=== PATIENT | female | born 1945 | race Two or more races ===

== ENCOUNTER 2016-10-15 10:47 | Day surgery (SDC) | payer OTHER ==
[~2016-10-15 10:47] MED LIST: Acetaminophen TAB* 325 MG PO PRN; Buffered Lidocaine 0.9% SYRIN* 5 ML/SYR SYRINGE INTRADERM ONE
[2016-10-15] MEDS ORDERED: fentaNYL* 50 MCG/ML 2 ML VIAL (100 MCG VIAL) ONE (11:46)
[2016-10-15] MEDS ORDERED: Midazolam* 1 MG/ML 2 ML VIAL (2 MG) ONE ×2 (11:46→13:27)
[2016-10-15 12:35] VITALS: BP 111/73
[2016-10-15] MEDS ORDERED: Flurbiprofen 0.03% OPTH.SOL* 2.5 ML BTL ONE (14:20)
[2016-10-15] MEDS ORDERED: Neomycin/Polymy/Dex OPHTH.OIN* 3.5 GM ONE (14:20)
[2016-10-15] MEDS ORDERED: Lidocaine 1% MPF* 2 ML VIAL ONE (14:20)
[2016-10-15] MEDS ORDERED: Phenylephrine 2.5% OPTH.SOL* 2 ML BTL ONE (14:20)
[2016-10-15] MEDS ORDERED: Buffered Lidocaine 0.9% SYRIN* 5 ML/SYR SYRINGE ONE (14:20)
[2016-10-15] MEDS ORDERED: Tropicamide 1% OPTH.SOL* BTL ONE (14:20)
[2016-10-15] MEDS ORDERED: Tetracaine 0.5% OPTH.SOL 4 ML* 1 DROP BTL ONE (14:20)
[2016-10-15] MEDS ORDERED: Cyclopentolate 1% OPTH.SOL* 2 ML BTL ONE (14:20)
--- NOTE | 2016-10-15 14:52 | OP ---
DATE OF OPERATION/DATE OF DICTATION: 10/15/2016 - [facility] DATE OF : 1945. SURGEON: Dr. Getachew Sage. METAL MACHINIST: None. ANESTHESIA: Topical with intravenous sedation. PRE-OP DIAGNOSIS: Cataract, right eye. POST-OP DIAGNOSIS: Cataract, right eye. OPERATIVE PROCEDURE: Phacoemulsification and cataract extraction with posterior chamber intraocular lens implant, right eye. COMPLICATIONS: None. BLOOD LOSS: None. DESCRIPTION OF PROCEDURE: The patient was brought to the operating room and received a small amount of intra-venous sedation. A drop of Tetracaine was placed in her right eye. She was prepped and draped in the usual sterile fashion for ophthalmic surgery and attention was directed to the right eye where a speculum was placed. A paracentesis was created at the 11 o'clock position and 0.1 cc of 1 percent preservative-free Lidocaine was injected into the anterior chamber followed by DisCoVisc. The eye was digitally stabilized while a 2.75 mm keratome was used to create a triplanar clear corneal incision at the 9 o'clock position. A continuous curvilinear capsulorrhexis was created with a cystotome and Utrata forceps. BSS on a cannula was used to hydrodissect the lens from the capsule. Phacoemulsification was performed in a divide-and- conquer technique to create four fragments which were removed. Residual cortical material was removed with irrigation and aspiration. DisCoVisc was used to inflate the capsular bag and an AUOOTO 15.0 diopter lens was folded and inserted into the capsular bag. DisCoVisc was removed using irrigation and aspiration. BSS on a cannula was used to hydrate the corneal stroma and seal the wound. At the end of the case the pupil was round and the lens was centered. The eye was of normal pressure and the wound was water tight. The speculum was removed and topical Maxitrol ointment was placed on the surface of the eye. The eye was closed, patched and shielded and the patient was sent to the recovery room in stable condition with post operative instructions and follow-up appointment given. [id number]/CPS #: [id number] MTDD
== END 2016-10-15 12:46 | disposition home or self-care (01) ==
LOC: OREAST 10:47
PROVIDERS: ATTEND Ophthalmology
DX: H25.11 Age-related nuclear cataract, right eye (principal); E78.5 Hyperlipidemia, unspecified
CPT/HCPCS: A9270-GY; J2250; J3010

== ENCOUNTER 2016-10-22 07:02 | Day surgery (SDC) | payer OTHER ==
[2016-10-22] MEDS ORDERED: fentaNYL* 50 MCG/ML 2 ML VIAL (100 MCG VIAL) ONE (08:12)
[2016-10-22] MEDS ORDERED: Midazolam* 1 MG/ML 5 ML VIAL (5 MG) ONE (08:12)
[2016-10-22 09:06] VITALS: BP 110/63
--- NOTE | 2016-10-22 09:26 | OP ---
DATE OF OPERATION/DATE OF DICTATION: 10/22/2016 - [facility] DATE OF : 1945. SURGEON: Dr. Getachew Sage. BAND TIER: None. ANESTHESIOLOGIST: Keshawn Jin MD ANESTHESIA: Topical with intravenous sedation. PRE-OP DIAGNOSIS: Cataract, left eye. POST-OP DIAGNOSIS: Cataract, left eye. OPERATIVE PROCEDURE: Phacoemulsification and cataract extraction with posterior chamber intraocular lens implant, left eye. COMPLICATIONS: None. BLOOD LOSS: None. DESCRIPTION OF PROCEDURE: The patient was brought to the operating room and received a small amount of intravenous sedation. A drop of Tetracaine was placed in her left eye. She was prepped and draped in the usual sterile fashion for ophthalmic surgery and attention was directed to the left eye where a speculum was placed. A paracentesis was created at the 5 o'clock position and 0.1 cc of 1 percent preservative-free Lidocaine was injected into the anterior chamber followed by DisCoVisc. The eye was digitally stabilized while a 2.75 mm keratome was used to create a triplanar clear corneal incision at the 3 o'clock position. A continuous curvilinear capsulorrhexis was created with a cystotome and Utrata forceps. BSS on a cannula was used to hydrodissect the lens from the capsule. Phacoemulsification was performed in a divide-and- conquer technique to create four fragments which were removed. Residual cortical material was removed with irrigation and aspiration. DisCoVisc was used to inflate the capsular bag and an AUOOTO 18.0 diopter lens was folded and inserted into the capsular bag. DisCoVisc was removed using irrigation and aspiration. BSS on a cannula was used to hydrate the corneal stroma and seal the wound. At the end of the case the pupil was round and the lens was centered. The eye was of normal pressure and the wound was water tight. The speculum was removed and topical Maxitrol ointment was placed on the surface of the eye. The eye was closed, patched and shielded and the patient was sent to the recovery room in stable condition with post operative instructions and follow-up appointment given. [id number]/CPS #: [id number] MTDD
[2016-10-22] MEDS ORDERED: Flurbiprofen 0.03% OPTH.SOL* 2.5 ML BTL ONE (12:54)
[2016-10-22] MEDS ORDERED: Cyclopentolate 1% OPTH.SOL* 2 ML BTL ONE (12:54)
[2016-10-22] MEDS ORDERED: Tropicamide 1% OPTH.SOL* BTL ONE (13:41)
[2016-10-22] MEDS ORDERED: Neomycin/Polymy/Dex OPHTH.OIN* 3.5 GM ONE (13:41)
[2016-10-22] MEDS ORDERED: Lidocaine 1% MPF* 2 ML VIAL ONE (13:41)
[2016-10-22] MEDS ORDERED: Phenylephrine 2.5% OPTH.SOL* 2 ML BTL ONE (13:41)
[2016-10-22] MEDS ORDERED: Ketorolac 0.5% OPHTH (NF) 0.5 % 5 ML BTL ONE (13:42)
[2016-10-22] MEDS ORDERED: Buffered Lidocaine 0.9% SYRIN* 5 ML/SYR SYRINGE ONE (13:42)
[2016-10-22] MEDS ORDERED: Tetracaine 0.5% OPTH.SOL 4 ML* 1 DROP BTL ONE (13:42)
== END 2016-10-22 08:57 | disposition home or self-care (01) ==
LOC: OREAST 07:02
PROVIDERS: ATTEND Ophthalmology
DX: H25.813 Combined forms of age-related cataract, bilateral (principal); K21.9 Gastro-esophageal reflux disease without esophagitis; F33.0 Major depressive disorder, recurrent, mild; M19.90 Unspecified osteoarthritis, unspecified site; E78.2 Mixed hyperlipidemia
CPT/HCPCS: A9270-GY; J2250; J3010; V2632

== ENCOUNTER 2017-04-20 08:18 | Inpatient (IN) | payer OTHER ==
[2017-04-20] MEDS ORDERED: Ketorolac INJ* 30 MG/ML 1 ML VIAL IV PUSH ONE (08:42)
[2017-04-20 09:16] LABS: ABS Basophils 0.1 10^3/ul (0-0.2); ABS Eosinophils 0.1 10^3/ul (0-0.6); ABS Lymphocytes 0.9 10^3/ul (1.0-4.8); ABS Monocytes 0.9 10^3/ul (0-0.8); ABS Neutrophils 6.3 10^3/ul (1.5-7.7); ABS Nucleated RBC 0 10^3/ul; Eosinophil % 0.6 % (0-6); Hematocrit 40 % (35-47); Hemoglobin 13.5 g/dl (12.0-16.0); Lymphocyte % 10.9 % (25-47); Mean Corpuscular HGB Conc 34 g/dl (31-36); Mean Corpuscular Hemoglobin 31 pg (27-31); Mean Corpuscular Volume 90 fL (80-97); Mean Platelet Volume 8 um3 (7.4-10.4); Nucleated Red Blood Cells % 0.1; Platelet Count 168 10^3/ul (150-450); Red Blood Count 4.42 10^6/ul (4.0-5.4); Red Cell Distribution Width 13 % (10.5-15); White Blood Count 8.3 10^3/ul (3.5-10.8)
[2017-04-20 09:31] LABS: EGFR Non-African American 82.7 (>60)
[2017-04-20] MEDS ORDERED: Iohexol 300* (CONTRAST) 10 ML SDV IV ONE (09:52)
--- NOTE | 2017-04-20 10:54 | RAD ---
INDICATION: RIGHT facial pain and swelling. Oral surgery to the RIGHT side of the mandible one week ago. Limitation in opening of the jaws. COMPARISON: No relevant prior exams available on the [facility] for comparison. TECHNIQUE: Multidetector CT base of the skull through mandible with 75 mL Omnipaque 300 IV contrast.. Multiplanar reformation. REPORT: Artifact from dental amalgam degrades image quality. There is a 2.6 cm AP by 0.9 cm transverse by 1.8 cm cephalocaudal peripherally enhancing abscess collection within the RIGHT medial pterygoid muscle. Surrounding soft tissue inflammatory change at the infratemporal fossa including at the RIGHT parapharyngeal fat. No additional abscess collection evident. Mild mucosal thickening at the RIGHT nasopharynx, oropharynx, and hypopharynx. Unremarkable parotid and submandibular glands. Negative for lymphadenopathy based on short axis criteria. Patent bilateral internal jugular veins. No periosteal reaction or osseous erosion/osteolysis evident. Unremarkable orbital contents. Clear paranasal sinuses and visualized mastoid air spaces. IMPRESSION: 2.6 cm AP by 0.9 cm transverse by 1.8 cm cephalocaudal peripherally enhancing abscess collection within the RIGHT medial pterygoid muscle. Surrounding soft tissue inflammatory change at the infratemporal fossa including at the RIGHT parapharyngeal fat. No additional abscess collection evident.
[2017-04-20] MEDS ORDERED: Clindamycin 600 MG IVPREMIX(* 600 MG/50 ML SDV IV ONE (11:10)
[2017-04-20 11:43] LABS: Urine Appearance Clear; Urine Blood 1+ (Negative); Urine Color Colorless; Urine Ketones Negative (Negative); Urine Protein Negative (Negative); Urine Specific Gravity 1.027 (1.010-1.030); Urine Urobilinogen Negative (Negative)
[2017-04-20] MEDS ORDERED: Piperacillin/Tazobac ADVAN(*) 3.375 GM in NS 0.9% 100 ML* 100 ML IVPB ONE (12:10)
[2017-04-20] MEDS ORDERED: Zosyn per Pharmacy* NOTE FOLLOW UP SCH (13:00)
[2017-04-20] MEDS: Heparin VIAL(*) 5000 UNITS/ML VIAL (FIVE THOUSAND) SUBCUT SCH ×2 (15:07→21:02)
[2017-04-20] MEDS: NS 0.9% 1000 ML* 1,000 ML IV SCH (15:07)
[2017-04-20] MEDS: Ketorolac INJ* 15 MG/ML 1 ML VIAL IV PUSH PRN ×2 (15:08→21:18)
--- NOTE | 2017-04-20 19:31 | HP ---
CC: Dr. Jasmyne Nguyen * HISTORY AND PHYSICAL: DATE OF ADMISSION: 04/20/17 PRIMARY CARE PROVIDER: Dr. Jasmyne Nguyen. MY ATTENDING WHILE IN THE HOSPITAL: Tres Nguyen MD * (DICTATED BY PARVEEN JESSICA) CHIEF COMPLAINT: Jaw pain and trismus. HISTORY OF PRESENT ILLNESS: Ms. Bates is a 71-year-old female with past medical history significant only for GERD, shingles, hyperlipidemia, and depression who presents after a dental procedure where she had a crown put on , after which she had what she felt to be a musculoskeletal jaw pain from hyperextension of her jaw during the procedure. This; however, persisted and it continued to worsen. The patient states that on 04/17/17, 1 week after her procedure, she was unable to open her mouth fully to take a bite of an apple and since then has had progressive inability to open her jaw. The patient also has worsening pain in her jaw as well as swelling and the patient denies any redness. The patient denies any discharge into her mouth or bad taste. The patient states she has had some feeling of difficulty swallowing solid foods. The patient denies any vomiting or reflux of undigested food. The patient has not had anything get stuck in her throat without passing, it feels like it is more difficult to go down. The patient has not had any drooling or inability to handle secretions, coughing with eating. The patient denies any recent illnesses, chest pain, shortness of breath or other systemic symptoms. The patient has not had any weight loss. The patient was found to have a pterygoid abscess with surrounding swelling on CT scan of the abdomen and was started on IV antibiotics and we were consulted for admission. PAST MEDICAL HISTORY: 1. GERD. 2. Shingles with postherpetic neuralgia. 3. Hyperlipidemia. PAST SURGICAL HISTORY: Bilateral cataract extraction. MEDICATIONS: 1. Duloxetine 60 mg p.o. daily. 2. Omeprazole 40 mg p.o. daily. 3. Meloxicam 15 mg p.o. b.i.d. as needed. 4. Crestor 10 mg p.o. daily. ALLERGIES: The patient had a poor reaction including agitation to PREDNISONE EYE DROPS. FAMILY HISTORY: Mother of an [place], age 62; father of ruptured aortic aneurysm and had stroke. Grandmother of breast cancer. SOCIAL HISTORY: Tobacco: The patient denies tobacco abuse. The patient drinks occasional alcohol. The patient has a distant remote past of occasional marijuana. 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 The patient is , has 2 children. The patient was born in [place]. The patient's healthcare proxy is her son, Quentin Clement. REVIEW OF SYSTEMS: A 14-point review of systems was reviewed, was negative except as stated in the HPI. PHYSICAL EXAMINATION GENERAL: The patient is a 71-year-old female who appears her stated age with swelling of the right side of her face and a left-sided facial droop who is sitting comfortably in bed, no acute distress. VITAL SIGNS: Vitals in the emergency room; temperature 91.0, pulse rate 95, respiratory rate 16, oxygen saturation 98% on room air, blood pressure 128/82. HEENT: Head: Normocephalic. Atraumatic. Sclerae anicteric. No conjunctival injection. Nasal mucosa moist. Oral mucosa moist. The patient is unable to open her jaw beyond 2 degrees. There is swelling of her right cheek without erythema noted on the inside of the mouth. There is no area of purulence or drainage noted from her cheek. No significant tenderness to palpation on the patient's right cheek and down below the patient's submandibular area. The patient's pharynx is unable to be examined due to trismus. NECK: Supple, nontender. No lymphadenopathy. No mass. Thyroid: Normal size. No carotid bruit auscultated. RESPIRATORY: Clear to auscultation bilaterally. No wheezes, rales or rhonchi. Good air exchange bilaterally. CARDIAC: Regular rate and rhythm. No clicks, murmurs, gallops, or rubs. Pulses are 2+ bilateral dorsalis pedis, posterior tibialis and radial areas. ABDOMEN: Soft, nontender, nondistended. Bowel sounds present, normoactive in all 4 quadrants. No hepatosplenomegaly or abdominal bruits auscultated. NEUROLOGIC: Cranial nerves II through XII intact except for a slight left- sided facial droop at rest, which the patient states has been there previously and forehead wrinkles symmetrically. The patient is able to keep her eyes closed against force and the patient's smile is symmetric. Alert and oriented x3. No focal deficits. SKIN: Clean, dry and intact. There is slight redness over the patient's right cheek. No other rash or ulcer. PSYCHIATRIC: The patient is pleasant and cooperative. LABORATORY DATA: White blood cell count 8.3, hemoglobin 13.5, hematocrit 40, MCV 90, RDW 13, platelet count 168,000. Sodium 133, potassium 3.8, chloride 102 , carbon dioxide 25, anion gap 6, BUN 17, creatinine 0.7, glucose 112, calcium 9.2, total bilirubin 0.8, AST 16, ALT 12, alkaline phosphatase 77, CRP 24.9, protein 6.5, albumin 3.9, globulin 2.6. Urine: Clear, 1+ blood, no other abnormalities. ASSESSMENT AND PLAN: Impression: 1. The patient is a 71-year-old female with past medical history significant for reflux, shingles, and hyperlipidemia who presents with jaw pain and trismus , progressively worsening following a dental procedure, which has progressed to the point where the patient cannot open her jaw past a couple of inches or take in large amounts of food by mouth. The patient was found to have pterygoid abscess on maxillofacial CT and will be admitted to the hospital for supportive care and IV antibiotics and will be seen in consultation by ENT. 2. Pterygoid abscess, Trismus: The patient has a pterygoid abscess on her right side found on CT scan. This is likely a complication of the patient's procedure with possible muscle damage as well. The patient has no signs of necrotic soft tissue infection. The patient's pain is well controlled with 1 dose of Toradol. The patient is able to take in liquids. The patient had slight difficulty swallowing. The patient was started on clindamycin and Zosyn while in the emergency department. The patient's case was discussed with ENT, they will see her in consultation and recommended that she be admitted to the hospital for at least 2 days of IV antibiotics. The patient will have normal saline at 75 mL an hour to avoid dehydration, will have a full liquid diet. The patient is not in extremis and does not need emergency intubation or other intensive treatment at this time. The patient may benefit from steroids, but had a poor reaction to these previously and this would be left up to the discretion of ENT when they see her in consultation. 3. Dysphagia: The patient's dysphagia is improving. The patient never had signs of aspiration. The patient has a facial droop, but no other focal deficits and the facial droop was present previously. This likely represents swelling surrounding her abscess, which is shown to impinge slightly on the oropharynx on CT scan. Further imaging of her neck at the discretion of ENT; however, the patient did not appear to be at risk for aspiration at this time. 4. Gastroesophageal reflux disease: Continue the patient's omeprazole. 5. Shingles with postherpetic neuralgia: Continue the patient's duloxetine. 6. Hyperlipidemia: Continue Crestor. 7. FEN: The patient will have a full liquid diet and fluids at 75 mL an hour. 8. DVT prophylaxis: The patient will have heparin subcu. The patient is a moderate risk due to her age. 9. Disposition: The patient is admitted inpatient for IV antibiotics. Anticipated length of stay greater than 2 days. 10. Code status: The patient would like to be a DNR. This needs followup. The patient's healthcare proxy is her son, Quentin Clement. TIME SPENT: Approximately 60 minutes was spent on this admission, 30 of which was spent [id number] with the patient and obtaining history and physical and discussing treatment plan. This plan has been discussed with my attending Dr. Tres Nguyen, and he is in agreement. PARVEEN JESSICA [id number]/CPS #: [id number] MTDD
[2017-04-20] MEDS: Clindamycin 600 MG IVPREMIX(* 600 MG/50 ML SDV IV SCH (20:09)
[2017-04-20] MEDS: Piperacillin/Tazobac ADVAN(*) 3.375 GM in NS 0.9% 100 ML* 100 ML IVPB SCH (21:03)
[2017-04-21] MEDS: Clindamycin 600 MG IVPREMIX(* 600 MG/50 ML SDV IV SCH ×3 (03:31→19:34)
[2017-04-21] MEDS: Heparin VIAL(*) 5000 UNITS/ML VIAL (FIVE THOUSAND) SUBCUT SCH ×3 (05:46→20:15)
[2017-04-21] MEDS: Piperacillin/Tazobac ADVAN(*) 3.375 GM in NS 0.9% 100 ML* 100 ML IVPB SCH ×3 (05:48→20:59)
[2017-04-21] MEDS: Ketorolac INJ* 15 MG/ML 1 ML VIAL IV PUSH PRN ×2 (06:21→20:14)
[2017-04-21 06:24] LABS: ABS Basophils 0.1 10^3/ul (0-0.2); ABS Eosinophils 0.1 10^3/ul (0-0.6); ABS Lymphocytes 1.5 10^3/ul (1.0-4.8); ABS Monocytes 0.7 10^3/ul (0-0.8); ABS Neutrophils 4.1 10^3/ul (1.5-7.7); ABS Nucleated RBC 0 10^3/ul; Eosinophil % 1.1 % (0-6); Hematocrit 35 % (35-47); Lymphocyte % 23.3 % (25-47); Mean Corpuscular HGB Conc 34 g/dl (31-36); Mean Corpuscular Hemoglobin 30 pg (27-31); Mean Corpuscular Volume 90 fL (80-97); Mean Platelet Volume 8 um3 (7.4-10.4); Nucleated Red Blood Cells % 0; Platelet Count 145 10^3/ul (150-450); Red Blood Count 3.94 10^6/ul (4.0-5.4); Red Cell Distribution Width 13 % (10.5-15); White Blood Count 6.5 10^3/ul (3.5-10.8)
[2017-04-21 06:37] LABS: EGFR Non-African American 74.1 (>60)
[2017-04-21] MEDS: Omeprazole CAP* 20 MG PO SCH (08:39)
[2017-04-21] MEDS: Atorvastatin* 20 MG TAB PO SCH (08:39)
[2017-04-21] MEDS: DULoxetine DR CAP* 30 MG CAP.DR PO SCH (08:39)
--- NOTE | 2017-04-21 10:39 | ED ---
Sarahi Parsons Edward, scribed for Anthony Raygoza MD on 04/20/17 at 0842 . Complex/Multi-Sys Presentation - HPI Summary HPI Summary: 71 y/o female presents to the ED c/o R side jaw pain and swelling for around 10 days. The pain is aggravated with opening of the mouth. Associated sx: RIVERA. Pt states when she swallows she feels like there is "mucous". Pt had dental work around 10 days ago. - History Of Current Complaint Chief Complaint: EDDentalPain Time Seen by Provider: 04/20/17 08:24 Hx Obtained From: Patient Onset/Duration: Lasting Days Timing: Constant Associated Signs And Symptoms: Positive: Headache, Other - R side dental pain and swelling - Allergies/Home Medications Allergies/Adverse Reactions: Allergies Allergy/AdvReac Type Severity Reaction Status Date / Time No Known Allergies Allergy Verified 04/20/17 08:23 Home Medications: Home Medications DULoxetine DR CAP* [Cymbalta CAP*] 60 mg PO DAILY 04/20/17 [History Confirmed ] Meloxicam(NF) [Mobic(NF)] 15 mg PO DAILY 04/20/17 [History Confirmed 04/20/17] Omeprazole CAP* [Prilosec CAP* 20 MG] 40 mg PO DAILY 04/20/17 [History Confirmed 04/20/17] Rosuvastatin (NF) [Crestor (NF)] 10 mg PO DAILY 04/20/17 [History Confirmed 01/25] PMH/Surg Hx/FS Hx/Imm Hx Previously Healthy: No Endocrine/Hematology History: Denies: Hx Diabetes GI History: Reports: Hx Gastroesophageal Reflux Disease Musculoskeletal History: Reports: Hx Arthritis - neck Sensory History: Reports: Hx Cataracts - both eyes, Hx Contacts or Glasses - glasses Denies: Hx Hearing Aid Comment Only: Hx Glaucoma - possible slight beginning Opthamlomology History: Reports: Hx Cataracts - both eyes, Hx Contacts or Glasses - glasses Comment Only: Hx Glaucoma - possible slight beginning Psychiatric History: Reports: Hx Anxiety - Cancer History Hx Chemotherapy: No Hx Radiation Therapy: No - Surgical History Surgery Procedure, Year, and Place: cararat surgery bilat eyes Infectious Disease History: No Infectious Disease History: Denies: Hx Clostridium Difficile, Hx Hepatitis, Hx Human Immunodeficiency Virus (HIV), Hx of Known/Suspected MRSA, Hx Shingles, Hx Tuberculosis, Hx Known/ Suspected VRE, Hx Known/Suspected VRSA, History Other Infectious Disease, Traveled Outside the [place] in Last 30 Days - Family History Known Family History: Positive: Cardiac Disease, Other - Aortic Aneurysm - Social History Alcohol Use: Occasionally Substance Use Type: Reports: None Smoking Status (MU): Never Smoked Tobacco Review of Systems Constitutional: Negative Eyes: Negative Positive: Dental Pain - and swelling, R side face, Other - "feeling of mucous" when she swallows Cardiovascular: Negative Respiratory: Negative Gastrointestinal: Negative Genitourinary: Negative Musculoskeletal: Negative Skin: Negative Positive: Headache Psychological: Normal All Other Systems Reviewed And Are Negative: Yes Physical Exam - Summary Physical Exam Summary: VITAL SIGNS: Reviewed. GENERAL: Patient is a well-developed and nourished female who is lying comfortable in the stretcher. Patient is not in any acute respiratory distress. HEAD AND FACE: No signs of trauma. No ecchymosis, hematomas or skull depressions. Pain at R side of face around R TMJ. Difficulty opening mouth secondary to pain. EYES: PERRLA, EOMI x 2, No injected conjunctiva, no nystagmus. EARS: Hearing grossly intact. Ear canals and tympanic membranes are within normal limits. MOUTH: Pain at R si NECK: Supple, trachea is midline, no adenopathy, no JVD, no carotid bruit, no c- spine tenderness, neck with full ROM. CHEST: Symmetric, no tenderness at palpation LUNGS: Clear to auscultation bilaterally. No wheezing or crackles. CVS: Regular rate and rhythm, S1 and S2 present, no murmurs or gallops appreciated. ABDOMEN: Soft, non-tender. No signs of distention. No rebound no guarding, and no masses palpated. Bowel sounds are normal. EXTREMITIES: FROM in all major joints, no edema, no cyanosis or clubbing. NEURO: Alert and oriented x 3. No acute neurological deficits. Speech is normal and follows commands. SKIN: Dry and warm Triage Information Reviewed: Yes Vital Signs On Initial Exam: Initial Vitals Temp Pulse Resp BP Pulse Ox 98.0 F 95 16 128/82 98 04/20/17 08:19 04/20/17 08:19 04/20/17 08:19 04/20/17 08:19 04/20/17 08:19 Vital Signs Reviewed: Yes Diagnostics - Vital Signs Vital Signs Temp Pulse Resp BP Pulse Ox 04/20/17 08:19 98.0 F 95 16 128/82 98 - Laboratory Lab Results: Lab Results 04/20/17 04/20/17 04/20/17 Range/Units 09:01 09:01 11:30 WBC 8.3 (3.5-10.8) 10^3/ul RBC 4.42 (4.0-5.4) 10^6/ul Hgb 13.5 (12.0-16.0) g/dl Hct 40 (35-47) % MCV 90 (80-97) fL MCH 31 (27-31) pg MCHC 34 (31-36) g/dl RDW 13 (10.5-15) % Plt Count 168 (150-450) 10^3/ul MPV 8 (7.4-10.4) um3 Neut % (Auto) 76.4 (38-83) % Lymph % (Auto) 10.9 L (25-47) % [place] % (Auto) 11.0 H (1-9) % Eos % (Auto) 0.6 (0-6) % Baso % (Auto) 1.1 (0-2) % Absolute Neuts (auto) 6.3 (1.5-7.7) 10^3/ul Absolute Lymphs (auto) 0.9 L (1.0-4.8) 10^3/ul Absolute Monos (auto) 0.9 H (0-0.8) 10^3/ul Absolute Eos (auto) 0.1 (0-0.6) 10^3/ul Absolute Basos (auto) 0.1 (0-0.2) 10^3/ul Absolute Nucleated RBC 0 10^3/ul Nucleated RBC % 0.1 Sodium 133 (133-145) mmol/L Potassium 3.8 (3.5-5.0) mmol/L Chloride 102 (101-111) mmol/L Carbon Dioxide 25 (22-32) mmol/L Anion Gap 6 (2-11) mmol/L BUN 17 (6-24) mg/dL Creatinine 0.70 (0.51-0.95) mg/dL Est GFR ( Amer) 106.4 (>60) Est GFR (Non-Af Amer) 82.7 (>60) BUN/Creatinine Ratio 24.3 H (8-20) Glucose 122 H (70-100) mg/dL Calcium 9.2 (8.6-10.3) mg/dL Total Bilirubin 0.80 (0.2-1.0) mg/dL AST 16 (13-39) U/L ALT 12 (7-52) U/L Alkaline Phosphatase 77 (34-104) U/L C-Reactive Protein 24.90 H (< 5.00) mg/L Total Protein 6.5 (6.4-8.9) g/dL Albumin 3.9 (3.2-5.2) g/dL Globulin 2.6 (2-4) g/dL Albumin/Globulin Ratio 1.5 (1-3) Urine Color Colorless Urine Appearance Clear Urine pH 7.0 (5-9) Ur Specific [place] 1.027 (1.010-1.030) Urine Protein Negative (Negative) Urine Ketones Negative (Negative) Urine Blood 1+ H (Negative) Urine Nitrate Negative (Negative) Urine Bilirubin Negative (Negative) Urine Urobilinogen Negative (Negative) Ur Leukocyte Esterase Negative (Negative) Urine WBC (Auto) Absent (Absent) Urine RBC (Auto) Trace(0-2/hpf) (Absent) Urine Bacteria Absent (Absent) Urine Glucose Negative (Negative) Result Diagrams: 04/21/17 06:06 04/21/17 06:06 Lab Statement: Any lab studies that have been ordered have been reviewed, and results considered in the medical decision making process. - CT MAXILLOFACIAL CT CT Interpretation: Positive (See Comments) - 2.6 cm AP by 0.9 cm transverse by 1.8 cm cephalocaudal peripherally enhancing abscess collection within the RIGHT medial pterygoid muscle. Surrounding soft tissue inflammatory change at the infratemporal fossa including at the RIGHT parapharyngeal fat. No additional abscess collection evident. CT Interpretation Completed By: Radiologist - ED PHYSICIAN REVIEWS AND AGREES Complex Multi-Symp Course/Dx Assessment/Plan: 71 y/o female presents to the ED c/o R side jaw pain and swelling for around 10 days. The pain is aggravated with opening of the mouth. Associated sx: RIVERA. Pt states when she swallows she feels like there is "mucous" . Pt had dental work around 10 days ago. Test results without significant abnormalities except CRP 24.9, UA UTI. In the ED course the pt was given toradol, IV fluids, clindamycin and zosyn for her infection and abscess. I discussed with Dr. Keenan who recommends admission. He will f/u with the pt. I discussed the case with Dr. Nguyen who accepted the pt for admission. Pt is hem stable, aox3. - Diagnoses Differential Diagnoses/HQI/PQRI: Other - dental pain, dental abscess Provider Diagnoses: RIGHT medial pterygoid muscle abscess - Physician Notifications Discussed Care Of Patient With: Jose C Keenan Time Discussed With Above Provider: 12:08 Instructed by Provider To: Admit As Inpatient Discharge - Discharge Plan Condition: Stable Disposition: ADMITTED TO [facility] The documentation as recorded by the Sarahi barker Edward accurately reflects the service I personally performed and the decisions made by me, Anthony Raygoza MD.
--- NOTE | 2017-04-21 11:36 | PN ---
Subjective Date of Service: 04/21/17 Interval History: Patient seen and examined. Still with significant trismus. Difficulty with PO intake. Denied fever, fatigue or chills. No n/v, jaw pain minimal at rest. No further complaints. Objective Active Medications: Atorvastatin Calcium (Lipitor*) 20 mg PO DAILY [facility] PRN Reason: Protocol Last Admin: 04/21/17 08:39 Dose: 20 mg Duloxetine HCl (Cymbalta Cap*) 60 mg PO DAILY [facility] Last Admin: 04/21/17 08:39 Dose: 60 mg Heparin Sodium (Porcine) (Heparin Vial(*)) 5,000 units SUBCUT Q8HR [facility] Last Admin: 04/21/17 05:46 Dose: 5,000 units Clindamycin HCl/Dextrose (Cleocin 600 Mg Ivpremix(*) Sdv) 600 mg in 50 mls @ 100 mls/hr IV Q8H [facility] Last Admin: 04/21/17 11:27 Dose: 100 mls/hr Sodium Chloride (Ns 0.9% 1000 Ml*) 1,000 mls @ 75 mls/hr IV PER RATE [facility] Last Admin: 04/20/17 15:07 Dose: 75 mls/hr Piperacillin Sod/Tazobactam (Sod 3.375 gm/ Sodium Chloride) 100 mls @ 25 mls/ hr IVPB Q8H [facility] Last Admin: 04/21/17 05:48 Dose: 25 mls/hr Ketorolac Tromethamine (Toradol Inj*) 15 mg IV PUSH Q6H PRN PRN Reason: PAIN Last Admin: 04/21/17 06:21 Dose: 15 mg Omeprazole (Prilosec Cap*) 40 mg PO DAILY@0730 [facility] Last Admin: 04/21/17 08:39 Dose: 40 mg Pharmacy Consult (Zosyn Per Pharmacy*) 1 note FOLLOW UP .ZOSYN PER PHARMACY [facility] Vital Signs - 8 hr 04/21/17 07:38 Temperature 97.0 F Pulse Rate 75 Respiratory 16 Rate Blood Pressure 107/50 (mmHg) O2 Sat by Pulse 96 Oximetry Oxygen Devices in Use Now: None Appearance: Alert, well appearing, NAD Eyes: No Scleral Icterus, PERRLA Ears/Nose/Mouth/Throat: Mucous Membranes Moist, - - swelling right jaw, tender to palpation, notable trismus Neck: Trachea Midline Respiratory: Symmetrical Chest Expansion and Respiratory Effort, Clear to Auscultation Cardiovascular: NL Sounds; No Murmurs; No JVD, RRR Extremities: No Clubbing, Cyanosis Neurological: Alert and Oriented x 3, NL Gait, NL Muscle Strength and Tone Result Diagrams: 04/21/17 06:06 04/21/17 06:06 Additional Lab and Data: Diagnostic Imaging: Patient Name: OMEGA ENCISO Medical Record#: [id number] Ordering Physician: Anthony Raygoza MD Acct.#: [id number] : 1945 Age: 71 Sex: F Location: EMERGENCY DEPARTMENT Exam Date: 04/20/17840 ADM Status: REG ER Order Information: CT MAXILLOFACIAL W Accession Number: [id number] CPT: 88702 INDICATION: RIGHT facial pain and swelling. Oral surgery to the RIGHT side of the mandible one week ago. Limitation in opening of the jaws. COMPARISON: No relevant prior exams available on the [facility] [place] for comparison. TECHNIQUE: Multidetector CT base of the skull through mandible with 75 mL Omnipaque 300 IV contrast.. Multiplanar reformation. REPORT: Artifact from dental amalgam degrades image quality. There is a 2.6 cm AP by 0.9 cm transverse by 1.8 cm cephalocaudal peripherally enhancing abscess collection within the RIGHT medial pterygoid muscle. Surrounding soft tissue inflammatory change at the infratemporal fossa including at the RIGHT parapharyngeal fat. No additional abscess collection evident. Mild mucosal thickening at the RIGHT nasopharynx, oropharynx, and hypopharynx. Unremarkable parotid and submandibular glands. Negative for lymphadenopathy based on short axis criteria. Patent bilateral internal jugular veins. No periosteal reaction or osseous erosion/osteolysis evident. Unremarkable orbital contents. Clear paranasal sinuses and visualized mastoid air spaces. IMPRESSION: 2.6 cm AP by 0.9 cm transverse by 1.8 cm cephalocaudal peripherally enhancing abscess collection within the RIGHT medial pterygoid muscle. Surrounding soft tissue inflammatory change at the infratemporal fossa including at the RIGHT parapharyngeal fat. No additional abscess collection evident. <Electronically signed by Anthony Diaz MD in OV> 04/20/17 1050 Dictated By: Anthony Diaz MD Dictated Date/Time: 04/20/17 1050 Transcribed Date/Time: 04/20/17 1037 Copy to: Assess/Plan/Problems-Billing Assessment: This is a 71 year old female patient with recent dental work, now presenting with pterygoid muscle abcess and inability to open mouth, requiring IV antibiotics and ENT consult. - Patient Problems (1) Abscess of jaw, right Code(s): M27.2 - INFLAMMATORY CONDITIONS OF JAWS SNOMED Code(s): 99556437 Comment: - Abcess in pterygoid muscle 2/2 dental procdere - ENT consult appreciated - Continue clindamycin and zosyn IV for 48 hours - ENT to reassess on friday and identify need for drainage or not - Full liquid to soft diet as tolerated (2) GERD (gastroesophageal reflux disease) Code(s): K21.9 - GASTRO-ESOPHAGEAL REFLUX DISEASE WITHOUT ESOPHAGITIS SNOMED Code(s): 700091166 Comment: - PPI (3) History of shingles Code(s): Z86.19 - PERSONAL HISTORY OF OTHER INFECTIOUS AND PARASITIC DISEASES SNOMED Code(s): 952193043777750 Comment: - Stable post-herpetic neuralgia Status and Disposition: remain inpatient, possible OR Friday Counseling and/or Coordination of Care Minutes: coordinated with staff
--- NOTE | 2017-04-21 12:42 | CONS ---
CONSULTATION REPORT: DATE OF CONSULT: 04/21/17 REQUESTING CONSULTATION: Hospitalist Service. REASON FOR CONSULTATION: Neck infection. HISTORY OF PRESENT ILLNESS: The patient is a 71-year-old who had her right lower crown working on 03/10/17. She had some pain afterwards, but it was tolerable, but then became much worse and had increasing swelling at the angle of her right mandible and presented to the emergency room. She has significant trismus and she had a CT scan that showed the development of an abscess. She was admitted for intravenous antibiotics and this morning is doing slightly better. On physical examination, she has 1-cm trismus. I am not able to get my fingers in her mouth. She has some swelling at the angle of the right mandible and deep to the angle posterior to the submandibular triangle. There is no significant fluctuance or induration of the skin. CT scan shows the development of an abscess allowing the medial table of the mandible on the right side. It looks like it might be apical abscess underneath the muscles in this location. ASSESSMENT: The patient has developed deep neck abscess following dental work on the right side. She appears to be responding to the intravenous antibiotics. RECOMMENDATIONS: Continue the intravenous antibiotics and supportive care. It may take several days to turn around and start feeling better. If not, the plan will be for incision and drainage in the operating room probably around Friday. [id number]/[facility] #: [id number] MONA
[2017-04-21] MEDS: NS 0.9% 1000 ML* 1,000 ML IV SCH (16:41)
[2017-04-21] MEDS: Acetaminophen TAB* 325 MG PO PRN (16:41)
[2017-04-22] MEDS: Clindamycin 600 MG IVPREMIX(* 600 MG/50 ML SDV IV SCH ×3 (02:25→19:25)
[2017-04-22] MEDS: Piperacillin/Tazobac ADVAN(*) 3.375 GM in NS 0.9% 100 ML* 100 ML IVPB SCH ×3 (05:04→20:51)
[2017-04-22] MEDS: Heparin VIAL(*) 5000 UNITS/ML VIAL (FIVE THOUSAND) SUBCUT SCH ×3 (05:48→21:37)
[2017-04-22] MEDS: Atorvastatin* 20 MG TAB PO SCH (08:03)
[2017-04-22] MEDS: Acetaminophen TAB* 325 MG PO PRN ×2 (08:03→20:50)
[2017-04-22] MEDS: Omeprazole CAP* 20 MG PO SCH (08:03)
[2017-04-22] MEDS: DULoxetine DR CAP* 30 MG CAP.DR PO SCH (08:04)
--- NOTE | 2017-04-22 11:53 | PN ---
Subjective Date of Service: 04/22/17 Interval History: Patient seen and examined. No acute overnight events. Still with edema to right jaw and some trismus. Pain improved. Able to tolerate pureed diet. Denies n/v, no fever or chills, no headache or sore throat. Denies ear pain or nasal congestion. Objective Active Medications: Acetaminophen (Tylenol Tab*) 650 mg PO Q6H PRN PRN Reason: DISCOMFORT Last Admin: 04/22/17 08:03 Dose: 650 mg Atorvastatin Calcium (Lipitor*) 20 mg PO DAILY [facility] PRN Reason: Protocol Last Admin: 04/22/17 08:03 Dose: 20 mg Duloxetine HCl (Cymbalta Cap*) 60 mg PO DAILY [facility] Last Admin: 04/22/17 08:04 Dose: 60 mg Heparin Sodium (Porcine) (Heparin Vial(*)) 5,000 units SUBCUT Q8HR [facility] Last Admin: 04/22/17 05:48 Dose: 5,000 units Clindamycin HCl/Dextrose (Cleocin 600 Mg Ivpremix(*) Sdv) 600 mg in 50 mls @ 100 mls/hr IV Q8H [facility] Last Admin: 04/22/17 10:34 Dose: 100 mls/hr Sodium Chloride (Ns 0.9% 1000 Ml*) 1,000 mls @ 75 mls/hr IV PER RATE [facility] Last Admin: 04/21/17 16:41 Dose: 75 mls/hr Piperacillin Sod/Tazobactam (Sod 3.375 gm/ Sodium Chloride) 100 mls @ 25 mls/ hr IVPB Q8H [facility] Last Admin: 04/22/17 05:04 Dose: 25 mls/hr Ketorolac Tromethamine (Toradol Inj*) 15 mg IV PUSH Q6H PRN PRN Reason: PAIN Last Admin: 04/21/17 20:14 Dose: 15 mg Omeprazole (Prilosec Cap*) 40 mg PO DAILY@0730 [facility] Last Admin: 04/22/17 08:03 Dose: 40 mg Pharmacy Consult (Zosyn Per Pharmacy*) 1 note FOLLOW UP .ZOSYN PER PHARMACY [facility] Oxygen Devices in Use Now: None Appearance: Alert, NAD Eyes: No Scleral Icterus, PERRLA Ears/Nose/Mouth/Throat: Mucous Membranes Moist Neck: Trachea Midline, - - edema to right jaw, extending behind the right ear and lateral portion of the neck Respiratory: Symmetrical Chest Expansion and Respiratory Effort, Clear to Auscultation Cardiovascular: NL Sounds; No Murmurs; No JVD, RRR Abdominal: NL Sounds; No Tenderness; No Distention Skin: No Rash or Ulcers Neurological: Alert and Oriented x 3, NL Gait, NL Muscle Strength and Tone Nutrition: Taking PO's Result Diagrams: 04/21/17 06:06 04/21/17 06:06 Additional Lab and Data: Diagnostic Imaging: Patient Name: OMEGA ENCISO Medical Record#: [id number] Ordering Physician: Anthony Raygoza MD Acct.#: [id number] : 1945 Age: 71 Sex: F Location: EMERGENCY DEPARTMENT Exam Date: 04/20/17840 ADM Status: REG ER Order Information: CT MAXILLOFACIAL W Accession Number: [id number] CPT: 81541 INDICATION: RIGHT facial pain and swelling. Oral surgery to the RIGHT side of the mandible one week ago. Limitation in opening of the jaws. COMPARISON: No relevant prior exams available on the [facility] for comparison. TECHNIQUE: Multidetector CT base of the skull through mandible with 75 mL Omnipaque 300 IV contrast.. Multiplanar reformation. REPORT: Artifact from dental amalgam degrades image quality. There is a 2.6 cm AP by 0.9 cm transverse by 1.8 cm cephalocaudal peripherally enhancing abscess collection within the RIGHT medial pterygoid muscle. Surrounding soft tissue inflammatory change at the infratemporal fossa including at the RIGHT parapharyngeal fat. No additional abscess collection evident. Mild mucosal thickening at the RIGHT nasopharynx, oropharynx, and hypopharynx. Unremarkable parotid and submandibular glands. Negative for lymphadenopathy based on short axis criteria. Patent bilateral internal jugular veins. No periosteal reaction or osseous erosion/osteolysis evident. Unremarkable orbital contents. Clear paranasal sinuses and visualized mastoid air spaces. IMPRESSION: 2.6 cm AP by 0.9 cm transverse by 1.8 cm cephalocaudal peripherally enhancing abscess collection within the RIGHT medial pterygoid muscle. Surrounding soft tissue inflammatory change at the infratemporal fossa including at the RIGHT parapharyngeal fat. No additional abscess collection evident. <Electronically signed by Anthony Diaz MD in OV> 04/20/17 1050 Dictated By: Anthony Diaz MD Dictated Date/Time: 04/20/17 1050 Transcribed Date/Time: 04/20/17 1037 Copy to: Assess/Plan/Problems-Billing Assessment: This is a 71 year old female patient with recent dental work, now presenting with pterygoid muscle abcess and inability to open mouth, requiring IV antibiotics and ENT consult. - Patient Problems (1) Abscess of jaw, right Code(s): M27.2 - INFLAMMATORY CONDITIONS OF JAWS SNOMED Code(s): 62160945 Comment: - Abcess in pterygoid muscle 2/2 dental procedere - ENT following - Afebrile, no leukocytosis - Continue clindamycin and zosyn IV - Keep NPO after midnight tonight in the event that ENT wants to take patient to OR Friday for drainage. - Puree diet for today (2) GERD (gastroesophageal reflux disease) Code(s): K21.9 - GASTRO-ESOPHAGEAL REFLUX DISEASE WITHOUT ESOPHAGITIS SNOMED Code(s): 968179339 Comment: - PPI (3) History of shingles Code(s): Z86.19 - PERSONAL HISTORY OF OTHER INFECTIOUS AND PARASITIC DISEASES SNOMED Code(s): 929718444030203 Comment: - Stable post-herpetic neuralgia Status and Disposition: Remain inpatient, possible OR Friday
[2017-04-22] MEDS: NS 0.9% 1000 ML* 1,000 ML IV SCH (21:38)
[2017-04-23] MEDS: Clindamycin 600 MG IVPREMIX(* 600 MG/50 ML SDV IV SCH ×3 (03:38→18:54)
[2017-04-23] MEDS: Piperacillin/Tazobac ADVAN(*) 3.375 GM in NS 0.9% 100 ML* 100 ML IVPB SCH ×2 (05:06→16:26)
[2017-04-23] MEDS: Heparin VIAL(*) 5000 UNITS/ML VIAL (FIVE THOUSAND) SUBCUT SCH ×2 (05:06→14:17)
[2017-04-23] MEDS: Atorvastatin* 20 MG TAB PO SCH (08:36)
[2017-04-23] MEDS: Omeprazole CAP* 20 MG PO SCH (08:36)
[2017-04-23] MEDS: DULoxetine DR CAP* 30 MG CAP.DR PO SCH (08:36)
[2017-04-23] MEDS: Acetaminophen TAB* 325 MG PO PRN (08:40)
[2017-04-23] MEDS ORDERED: Clindamycin 600 MG IVPREMIX(* 600 MG/50 ML SDV ONE (11:54)
[2017-04-23] MEDS ORDERED: Lidocaine 1% MPF wEPI 200,000* 30 ML SDV ONE (12:46)
[2017-04-23] MEDS ORDERED: Chlorhexidine MW 0.12% 473ML* STOCK BOTTLE * USE UNIT DOSE ONE (12:46)
[2017-04-23] MEDS ORDERED: fentaNYL* 50 MCG/ML 2 ML VIAL (100 MCG VIAL) ONE ×3 (13:26→14:47)
[2017-04-23] MEDS ORDERED: Midazolam* 1 MG/ML 2 ML VIAL (2 MG) ONE (13:26)
[2017-04-23] MEDS ORDERED: Succinylcholine* 20 MG/ML 10 ML VIAL ONE (13:28)
[2017-04-23] MEDS ORDERED: Phenylephrine INJ* 10 MG/ML 1 ML VIAL (10 MG) ONE (14:01)
[2017-04-23] MEDS ORDERED: Lidocaine 2% PF * 5 ML VIAL ONE (14:01)
[2017-04-23] MEDS: fentaNYL* 50 MCG/ML 2 ML VIAL (100 MCG VIAL) IV PRN ×4 (14:25→15:03)
[2017-04-23] MEDS ORDERED: Naloxone* 0.4 MG/ML 1 ML VIAL IV PRN (14:26)
[2017-04-23] MEDS ORDERED: DiMENhydriNATE IV* 50 MG/ML VIAL IV PUSH PRN (14:26)
[2017-04-23] MEDS ORDERED: Ketorolac INJ* 30 MG/ML 1 ML VIAL ONE (15:07)
[2017-04-23] MEDS: Ketorolac INJ* 15 MG/ML 1 ML VIAL IV PUSH PRN ×2 (15:08→21:18)
[2017-04-23] MEDS ORDERED: Piperacillin/Tazobac ADVAN(*) 3.375 GM in NS 0.9% 100 ML* 100 ML IVPB SCH (16:30)
[2017-04-23] MEDS: NS 0.9% 1000 ML* 1,000 ML IV SCH (16:51)
[2017-04-23] MEDS ORDERED: Dexamethasone IV* 4 MG/ML 1 ML (4 MG) IM ONE (17:30)
[2017-04-23] MEDS ORDERED: Dexamethasone IV* 4 MG/ML 1 ML (4 MG) IV SLOW PU ONE (17:30)
[2017-04-23] MEDS ORDERED: Albuterol 2.5 MG/3 ML NEB.SOL* (0.083%) INH PRN (17:31)
--- NOTE | 2017-04-23 18:50 | PN ---
Subjective Date of Service: 04/23/17 Interval History: Patient seen and examined post-op. Was lethargic and having difficulty swallowing. Call placed to ENT Dr. Keenan for update. Discussed procedure with patient. Patient states having difficulty swallowing, feels like mucous stuck in her throat. Explained it is likely swelling, as there was no abscess to be drained. Patient tolerating small sips of water. Objective Active Medications: Acetaminophen (Tylenol Tab*) 650 mg PO Q6H PRN PRN Reason: DISCOMFORT Last Admin: 04/23/17 08:40 Dose: 650 mg Albuterol (Ventolin 2.5 Mg/3 Ml Neb.Holly*) 2.5 mg INH Q4H PRN PRN Reason: SOB/WHEEZING Atorvastatin Calcium (Lipitor*) 20 mg PO DAILY [facility] PRN Reason: Protocol Last Admin: 04/23/17 08:36 Dose: 20 mg Chlorhexidine Gluconate (Peridex Mouth Wash 0.12%*) 10 ml SWISH SPIT [facility] Dexamethasone Sodium Phosphate (Decadron Iv*) 8 mg IV SLOW PU Q12H [facility] Stop: 04/24/17 22:01 Dimenhydrinate (Dramamine Iv*) 25 mg IV PUSH ONCE PRN PRN Reason: NAUSEA/VOMITING Stop: 04/23/17 19:00 Duloxetine HCl (Cymbalta Cap*) 60 mg PO DAILY [facility] Last Admin: 04/23/17 08:36 Dose: 60 mg Fentanyl Citrate (Fentanyl*) 50 mcg IV Q5M PRN PRN Reason: PAIN - MODERATE Stop: 04/23/17 19:00 Last Admin: 04/23/17 15:03 Dose: 50 mcg Clindamycin HCl/Dextrose (Cleocin 600 Mg Ivpremix(*) Sdv) 600 mg in 50 mls @ 100 mls/hr IV Q8H [facility] Last Admin: 04/23/17 11:56 Dose: 100 mls/hr Sodium Chloride (Ns 0.9% 1000 Ml*) 1,000 mls @ 75 mls/hr IV PER RATE [facility] Last Admin: 04/23/17 16:51 Dose: 75 mls/hr Ketorolac Tromethamine (Toradol Inj*) 15 mg IV PUSH Q6H PRN PRN Reason: PAIN Last Admin: 04/23/17 15:08 Dose: 15 mg Naloxone HCl (Narcan*) 0.08 mg IV Q2M PRN PRN Reason: severe induced resp depression Stop: 04/24/17 14:25 Omeprazole (Prilosec Cap*) 40 mg PO DAILY@0730 [facility] Last Admin: 04/23/17 08:36 Dose: 40 mg Vital Signs - 8 hr 04/23/17 04/23/17 04/23/17 14:16 14:20 14:25 Temperature 97.2 F Pulse Rate 99 100 98 Respiratory 16 16 22 Rate Blood Pressure 153/91 152/86 158/112 (mmHg) O2 Sat by Pulse 98 99 95 Oximetry 04/23/17 04/23/17 04/23/17 14:28 14:30 14:45 Temperature Pulse Rate 96 90 Respiratory 22 22 22 Rate Blood Pressure 150/94 163/98 (mmHg) O2 Sat by Pulse 95 98 Oximetry 04/23/17 04/23/17 04/23/17 14:49 15:03 15:10 Temperature Pulse Rate 84 Respiratory 20 16 20 Rate Blood Pressure 174/90 (mmHg) O2 Sat by Pulse 97 Oximetry 04/23/17 04/23/17 04/23/17 15:28 15:35 15:40 Temperature 98.1 F 98.1 F Pulse Rate 88 83 83 Respiratory 20 16 16 Rate Blood Pressure 148/84 143/82 143/82 (mmHg) O2 Sat by Pulse 98 93 93 Oximetry 04/23/17 04/23/17 16:00 16:04 Temperature Pulse Rate Respiratory 16 Rate Blood Pressure (mmHg) O2 Sat by Pulse 93 Oximetry Oxygen Devices in Use Now: None Appearance: sleepy, nad Ears/Nose/Mouth/Throat: NL Teeth, Lips, Gums, Mucous Membranes Moist Neck: - - still with edema to right jaw and neck, trismus improved, no stridor noted Respiratory: Symmetrical Chest Expansion and Respiratory Effort, Clear to Auscultation Cardiovascular: NL Sounds; No Murmurs; No JVD, RRR Abdominal: NL Sounds; No Tenderness; No Distention Extremities: No Edema, No Clubbing, Cyanosis Skin: No Rash or Ulcers Neurological: Alert and Oriented x 3, NL Sensation, NL Gait Result Diagrams: 04/21/17 06:06 04/21/17 06:06 Additional Lab and Data: Diagnostic Imaging: Patient Name: OMEGA ENCISO Medical Record#: [id number] Ordering Physician: Anthony Raygoza MD Acct.#: [id number] : 1945 Age: 71 Sex: F Location: EMERGENCY DEPARTMENT Exam Date: 04/20/17840 ADM Status: REG ER Order Information: CT MAXILLOFACIAL W Accession Number: [id number] CPT: 51268 INDICATION: RIGHT facial pain and swelling. Oral surgery to the RIGHT side of the mandible one week ago. Limitation in opening of the jaws. COMPARISON: No relevant prior exams available on the [facility] PACS for comparison. TECHNIQUE: Multidetector CT base of the skull through mandible with 75 mL Omnipaque 300 IV contrast.. Multiplanar reformation. REPORT: Artifact from dental amalgam degrades image quality. There is a 2.6 cm AP by 0.9 cm transverse by 1.8 cm cephalocaudal peripherally enhancing abscess collection within the RIGHT medial pterygoid muscle. Surrounding soft tissue inflammatory change at the infratemporal fossa including at the RIGHT parapharyngeal fat. No additional abscess collection evident. Mild mucosal thickening at the RIGHT nasopharynx, oropharynx, and hypopharynx. Unremarkable parotid and submandibular glands. Negative for lymphadenopathy based on short axis criteria. Patent bilateral internal jugular veins. No periosteal reaction or osseous erosion/osteolysis evident. Unremarkable orbital contents. Clear paranasal sinuses and visualized mastoid air spaces. IMPRESSION: 2.6 cm AP by 0.9 cm transverse by 1.8 cm cephalocaudal peripherally enhancing abscess collection within the RIGHT medial pterygoid muscle. Surrounding soft tissue inflammatory change at the infratemporal fossa including at the RIGHT parapharyngeal fat. No additional abscess collection evident. <Electronically signed by Anthony Diaz MD in [facility]> 04/20/17 1050 Dictated By: Anthony Diaz MD Dictated Date/Time: 04/20/17 1050 Transcribed Date/Time: 04/20/17 1037 Copy to: Assess/Plan/Problems-Billing Assessment: This is a 71 year old female patient with recent dental work, now presenting with pterygoid muscle abcess and inability to open mouth, requiring IV antibiotics, POD0 from I&D. - Patient Problems (1) Abscess of jaw, right Code(s): M27.2 - INFLAMMATORY CONDITIONS OF JAWS SNOMED Code(s): 55230678 Comment: - Per Dr. Keenan, there was no abscess to be drained in the pterygoid muscle, that patient's trismus was secondary to spasm/edema which was released today - Additional dose of decadron now then continue for 3 more doses per ENT - Self-suction as needed, albuterol PRN - Monitor airway - Advance diet as tolerated - Continue clindamycin for now, zosyn DC'd today, afebrile (2) GERD (gastroesophageal reflux disease) Code(s): K21.9 - GASTRO-ESOPHAGEAL REFLUX DISEASE WITHOUT ESOPHAGITIS SNOMED Code(s): 623792084 Comment: - PPI (3) History of shingles Code(s): Z86.19 - PERSONAL HISTORY OF OTHER INFECTIOUS AND PARASITIC DISEASES SNOMED Code(s): 324215235060782 Comment: - Stable post-herpetic neuralgia Status and Disposition: Remain inpatient. DC when clear by ENT. Counseling and/or Coordination of Care Minutes: coordinated with Dr. Keenan
--- NOTE | 2017-04-23 19:16 | CONS ---
CONSULTATION REPORT: DATE OF CONSULT: 04/23/17 - ROOM #420 HISTORY OF PRESENT ILLNESS: I returned to see the patient this morning. She had the abscess along the right mandible that was formed after some dental work. She has now been on several days of intravenous antibiotics. She certainly not getting worse, but she is also not getting significantly better. She still has significant trismus where she cannot open her mouth and she is tender on that side of her jaw. PHYSICAL EXAM: She has tenderness, but no significant fluctuance in the right neck at the angle of the mandible. She has significant trismus and that I am not able to open her mouth at all or even get my finger in. ASSESSMENT: The patient is not improving. RECOMMENDATIONS: My recommendation is an incision and drainage of right oral abscess. I believe the abscess is along the medial table of the mandible on the right side where she was having some dental work done. The trismus is secondary to spasm of the muscles that attached in this location. We discuss the surgery, the risk of bleeding, we are doing it for infection, but there is always a risk of infection and the fact that the nerve that innervates the mandible for sensation runs right through there and there is a risk of injuring that nerve, she understands. [id number]/[facility] #: [id number] MONA
[2017-04-23] MEDS: Chlorhexidine MOUTHWASH 0.12%* 15 ML UDC SWISH SPIT SCH (21:03)
[2017-04-23] MEDS: Dexamethasone IV* 4 MG/ML 1 ML (4 MG) IV SLOW PU SCH (21:03)
[2017-04-24] MEDS: Clindamycin 600 MG IVPREMIX(* 600 MG/50 ML SDV IV SCH ×2 (01:54→10:59)
[2017-04-24] MEDS: Atorvastatin* 20 MG TAB PO SCH (08:30)
[2017-04-24] MEDS: DULoxetine DR CAP* 30 MG CAP.DR PO SCH (08:30)
[2017-04-24] MEDS: Omeprazole CAP* 20 MG PO SCH (08:30)
[2017-04-24] MEDS: NS 0.9% 1000 ML* 1,000 ML IV SCH (08:32)
--- NOTE | 2017-04-24 10:24 | PN ---
Subjective Date of Service: 04/24/17 Interval History: Ms. Bates states that she is feeling better today. She is able to open her mouth more and feels that the right jaw swelling has decreased. She reports that she feels a fullness in the back of her throat when she holds her head in certain positions that makes it hard to breathe out, this seems to be resolving. Objective Active Medications: Acetaminophen (Tylenol Tab*) 650 mg PO Q6H PRN Albuterol (Ventolin 2.5 Mg/3 Ml Neb.Holly*) 2.5 mg INH Q4H PRN Atorvastatin Calcium (Lipitor*) 20 mg PO DAILY [facility] Chlorhexidine Gluconate (Peridex Mouth Wash 0.12%*) 10 ml SWISH SPIT TID [facility] Dexamethasone Sodium Phosphate (Decadron Iv*) 8 mg IV SLOW PU Q12H [facility] Duloxetine HCl (Cymbalta Cap*) 60 mg PO DAILY [facility] Clindamycin HCl/Dextrose (Cleocin 600 Mg Ivpremix(*) Sdv) 600 mg in 50 mls @ 100 mls/hr IV Q8H [facility] Sodium Chloride (Ns 0.9% 1000 Ml*) 1,000 mls @ 75 mls/hr IV PER RATE [facility] Ketorolac Tromethamine (Toradol Inj*) 15 mg IV PUSH Q6H PRN Naloxone HCl (Narcan*) 0.08 mg IV Q2M PRN Omeprazole (Prilosec Cap*) 40 mg PO DAILY@0730 [facility] Vital Signs: Temp Pulse Resp BP Pulse Ox 98.9 F 100 16 124/68 96 04/24/17 07:12 04/24/17 07:12 04/24/17 10:05 04/24/17 07:12 04/24/17 10:05 Oxygen Devices in Use Now: None Appearance: Female sitting up in bed in NAD Eyes: No Scleral Icterus Ears/Nose/Mouth/Throat: Clear Oropharnyx, Mucous Membranes Moist, - - Limited visualization of oropharynx due to persistent trismus Neck: Trachea Midline Respiratory: Symmetrical Chest Expansion and Respiratory Effort, Clear to Auscultation Cardiovascular: NL Sounds; No Murmurs; No JVD, No Edema Abdominal: NL Sounds; No Tenderness; No Distention Lymphatic: No Cervical Adenopathy Extremities: No Edema Skin: No Rash or Ulcers Neurological: Alert and Oriented x 3, NL Muscle Strength and Tone Nutrition: Taking PO's Result Diagrams: 04/21/17 06:06 04/21/17 06:06 Additional Lab and Data: . Diagnostic Imaging: . Assess/Plan/Problems-Billing Assessment: Ms. Bates is a 71 year old female patient with recent dental work, now presenting with question of pterygoid muscle abcess and inability to open mouth , requiring IV antibiotics, s/p I/D without finding of abscess but release of trismus and spasm. - Patient Problems (1) Abscess of jaw, right Comment: - Per Dr. Keenan, there was no abscess to be drained in the pterygoid muscle, that patient's trismus was secondary to spasm/edema which was released . - Continue decadron for 3 more doses per ENT - Self-suction as needed, albuterol PRN - Monitor airway - Advance diet as tolerated - Continue clindamycin (2) GERD (gastroesophageal reflux disease) Comment: - Continue omeprazole. (3) Hyperlipidemia Comment: - Continue atorvastatin. (4) Depression Comment: - Continue cymbalta. (5) DVT prophylaxis Comment: - Early mobility, SCDs. (6) Full code status Comment: Status and Disposition: Remain inpatient. Anticipate discharge to home when medically stable.
[2017-04-24] MEDS: Dexamethasone IV* 4 MG/ML 1 ML (4 MG) IV SLOW PU SCH ×2 (10:59→21:34)
[2017-04-24] MEDS: Chlorhexidine MOUTHWASH 0.12%* 15 ML UDC SWISH SPIT SCH ×3 (10:59→21:33)
--- NOTE | 2017-04-24 14:09 | OP ---
DATE OF OPERATION: 04/23/17 - ROOM #420 DATE OF : 47 SURGEON: Jimi Keenan MD PRE-OP DIAGNOSES: Right intraoral abscess along the medial aspect of the mandible under the pterygoid muscles. POST-OP DIAGNOSIS: Right intraoral abscess along the medial aspect of the mandible under the pterygoid muscles, but I did not find any pus, there is a lot of edema. OPERATIVE PROCEDURE: Incision and drainage of a right intraoral abscess under general endotracheal anesthesia. COMPLICATIONS: None. DISPOSITION: Good. SPECIMENS: None. ESTIMATED BLOOD LOSS: About 5 mL. DESCRIPTION OF PROCEDURE: The patient was taken to the operating room, placed in the supine position on the operating room table and general anesthesia was induced and she was orotracheally intubated. She had had lot of trismus, but with relaxation, the trismus relaxed and there was no difficulty with intubation. The side biter mouth gag was placed on left side and her mouth was opened and her tongue was retracted medially. She had a lot of edema along the medial aspect of her mandible from the angle superiorly to the condyle. I used a secret needle in this area to try to find pus, did not find any, but I made a little incision with a #11 blade right along the mandible and then used a Shea clamp to probe around. Again, I did not find any pus. was used to irrigate the area and her throat was suctioned. The patient tolerated this well , no complications. [id number] #: [id number] MONA
[2017-04-24] MEDS: Clindamycin CAP* 150 MG PO SCH (18:28)
[2017-04-25] MEDS: Clindamycin CAP* 150 MG PO SCH (03:15)
[2017-04-25 07:34] VITALS: BP 131/75
[2017-04-25] MEDS: DULoxetine DR CAP* 30 MG CAP.DR PO SCH (07:56)
[2017-04-25] MEDS: Omeprazole CAP* 20 MG PO SCH (07:56)
[2017-04-25] MEDS: Atorvastatin* 20 MG TAB PO SCH (07:56)
[2017-04-25] MEDS: Chlorhexidine MOUTHWASH 0.12%* 15 ML UDC SWISH SPIT SCH (07:57)
--- NOTE | 2017-04-25 08:39 | PN ---
Subjective Date of Service: 04/25/17 Interval History: Ms. Bates states that she is feeling well this morning and is eager for discharge to home. Objective Active Medications: Acetaminophen (Tylenol Tab*) 650 mg PO Q6H PRN Albuterol (Ventolin 2.5 Mg/3 Ml Neb.Holly*) 2.5 mg INH Q4H PRN Atorvastatin Calcium (Lipitor*) 20 mg PO DAILY [facility] Chlorhexidine Gluconate (Peridex Mouth Wash 0.12%*) 10 ml SWISH SPIT TID LENI Clindamycin HCl (Cleocin Cap*) 300 mg PO Q8H LENI Duloxetine HCl (Cymbalta Cap*) 60 mg PO DAILY [facility] Ketorolac Tromethamine (Toradol Inj*) 15 mg IV PUSH Q6H PRN Omeprazole (Prilosec Cap*) 40 mg PO DAILY@0730 [facility] Vital Signs: Temp Pulse Resp BP Pulse Ox 98.1 F 86 16 131/75 98 04/25/17 07:33 04/25/17 07:33 04/25/17 08:28 04/25/17 07:33 04/25/17 08:28 Oxygen Devices in Use Now: None Appearance: Female lying in bed in NAD Eyes: No Scleral Icterus Ears/Nose/Mouth/Throat: Mucous Membranes Moist Neck: NL Appearance and Movements; NL JVP, Trachea Midline Respiratory: Symmetrical Chest Expansion and Respiratory Effort, Clear to Auscultation Cardiovascular: NL Sounds; No Murmurs; No JVD, No Edema Abdominal: NL Sounds; No Tenderness; No Distention Lymphatic: No Cervical Adenopathy Extremities: No Edema Skin: No Rash or Ulcers Neurological: Alert and Oriented x 3 Nutrition: Taking PO's Result Diagrams: 04/21/17 06:06 04/21/17 06:06 Additional Lab and Data: . Diagnostic Imaging: . Assess/Plan/Problems-Billing Assessment: Ms. Bates is a 71 year old female patient with recent dental work, now presenting with question of pterygoid muscle abcess and inability to open mouth , requiring IV antibiotics, s/p I/D without finding of abscess but release of trismus and spasm. - Patient Problems (1) Abscess of jaw, right Comment: - ABSCESS RULED OUT, though concern for infection with plan for continued course of antibiotics. Per Dr. Keenan, there was no abscess to be drained in the pterygoid muscle, that patient's trismus was secondary to spasm/edema which was released 04/23/17. (2) GERD (gastroesophageal reflux disease) Comment: - Continue omeprazole. (3) Hyperlipidemia Comment: - Continue atorvastatin. (4) Depression Comment: - Continue cymbalta. (5) DVT prophylaxis Comment: - Early mobility, SCDs. (6) Full code status Comment: Status and Disposition: Discharge to home.
--- NOTE | 2017-04-26 00:31 | DS ---
CC: Dr. Jasmyne Nguyen * DISCHARGE SUMMARY: DATE OF ADMISSION: 04/20/17 DATE OF DISCHARGE: 04/25/17 PRIMARY CARE PHYSICIAN: Dr. Jasmyne Nguyen. ATTENDING PHYSICIAN: Dr. Chan Melchor * (dictation provided by Rebeca Hair NP). PRIMARY DIAGNOSIS: Right pterygoid muscle infection/inflammation, abscess ruled out. SECONDARY DIAGNOSES: 1. Gastroesophageal reflux disease. 2. Shingles with postherpetic neuralgia. 3. Hyperlipidemia. PAST SURGICAL HISTORY: Bilateral cataract extraction. MEDICATIONS AT THE TIME OF DISCHARGE: 1. Clindamycin 300 mg p.o. q.6 hours x5 days. 2. Duloxetine 60 mg p.o. daily. 3. Omeprazole 40 mg p.o. daily. 4. Meloxicam 15 mg p.o. b.i.d. as needed. 5. Crestor 10 mg p.o. daily. HOSPITAL COURSE: Ms. Bates is a 71-year-old female with a past medical history as outlined above, who presented to the emergency room on 04/20/17 with concern for jaw pain and trismus. Please see the dictated H and P from Tres Nguyen MD, for complete details. In brief, the patient had a dental procedure with the crown placed on 04/10/17. After that, she had jaw pain on the right with increasing difficulty with opening her mouth. By 04/17/17, she was unable to open her mouth fully. She took a bite of an apple and this worsened until her arrival in the emergency room. In the emergency room, she had a maxillofacial CT, which showed the following "2.6 cm AP x 0.9 cm transverse x 1.8 cm cephalocaudal peripherally enhancing abscess collection within the right medial pterygoid muscle, surrounding soft tissue inflammatory change at the infratemporal fossa including at the right parapharyngeal fat. No additional abscess collection evident." Ms. Bates was seen in consultation by Dr. Keenan from ENT. I will refer you to his note for complete details. In brief, he recommended that the patient go on intravenous clindamycin antibiotic therapy in hopes that the abscess and trismus would resolve. However, the patient continued to have difficulty opening her mouth and swelling to the right jaw. Therefore, she went to OR with Dr. Keenan on 04/23/17. He did not find any abscess collection during that procedure, but did find significant amount of edema and was able to relieve the trismus. Dr. Keenan recommended that the patient continue on additional doses of Decadron for treatment of trismus. With this, she has had good improvement in her ability to open her mouth and tolerate oral intake. Ms. Bates is medically stable for discharge to home. She has completed a course of Decadron therapy. She has been on clindamycin while here in hospital and Dr. Keenan recommended that she continue on that for 5 more days outpatient. DISPOSITION: Home. DIET: Regular. ACTIVITY: As tolerated. FOLLOWUP PLANS: Please follow up with Dr. Jasmyne Nguyen in 1 to 2 weeks regarding this acute hospitalization. TIME SPENT: Approximately 60 minutes was spent in the discharge of this patient , more than half that time was spent with the patient at the bedside reviewing the events leading up this hospitalization and during this hospitalization, performing the physical examination, and reviewing my plan of care. REBECA HAIR NP [id number]/[facility] #: [id number] MONA
== END 2017-04-25 11:00 | disposition home or self-care (01) | DRG 863 ==
LOC: ED 08:18 → MEDTELE 12:43 → MED 14:48
PROVIDERS: ADMIT Internal Medicine; ATTEND Internal Medicine
PROC: 0WJ30ZZ Inspection of Oral Cavity and Throat, Open Approach (ICD-10-PCS; principal; 2017-04-23 13:45)
DX: T81.4XXA Infection following a procedure, initial encounter (principal); M60.08 Infective myositis, other site; B02.29 Other postherpetic nervous system involvement; L02.11 Cutaneous abscess of neck; K91.89 Other postprocedural complications and disorders of digestive system; R13.10 Dysphagia, unspecified; F32.9 Major depressive disorder, single episode, unspecified; E78.5 Hyperlipidemia, unspecified; Y83.8 Other surgical procedures as the cause of abnormal reaction of the patient, or of later complication, without mention of misadventure at the time of the procedure; R29.810 Facial weakness; M13.88 Other specified arthritis, other site; F41.9 Anxiety disorder, unspecified; M27.2 Inflammatory conditions of jaws; K21.9 Gastro-esophageal reflux disease without esophagitis; Z98.42 Cataract extraction status, left eye; Z98.41 Cataract extraction status, right eye; Z88.8 Allergy status to other drugs, medicaments and biological substances; Z82.49 Family history of ischemic heart disease and other diseases of the circulatory system; Z82.3 Family history of stroke; Z80.3 Family history of malignant neoplasm of breast; Z72.89 Other problems related to lifestyle
CPT/HCPCS: 36415; 70487; 80048; 80053; 81003; 81015; 85025; 86140; 99283; A9270-GY; J0330; J1100; J1644; J1885; J2001; J2250; J2543; J3010; Q9967

== ENCOUNTER 2017-05-09 10:05 | Emergency (ER) | payer OTHER ==
[2017-05-09 10:54] LABS: ABS Basophils 0.1 10^3/ul (0-0.2); ABS Eosinophils 0 10^3/ul (0-0.6); ABS Lymphocytes 0.9 10^3/ul (1.0-4.8); ABS Monocytes 0.4 10^3/ul (0-0.8); ABS Neutrophils 7.7 10^3/ul (1.5-7.7); ABS Nucleated RBC 0 10^3/ul; Eosinophil % 0.1 % (0-6); Hematocrit 38 % (35-47); Hemoglobin 12.8 g/dl (12.0-16.0); Lymphocyte % 9.6 % (25-47); Mean Corpuscular HGB Conc 34 g/dl (31-36); Mean Corpuscular Hemoglobin 31 pg (27-31); Mean Corpuscular Volume 91 fL (80-97); Mean Platelet Volume 8 um3 (7.4-10.4); Nucleated Red Blood Cells % 0; Platelet Count 174 10^3/ul (150-450); Red Blood Count 4.18 10^6/ul (4.0-5.4); Red Cell Distribution Width 13 % (10.5-15); White Blood Count 9.1 10^3/ul (3.5-10.8)
--- OUTSIDE RECORDS SUMMARY | 2017-05-09 10:58 | XMS REPORT ---
:1945 External Reference #:[id number] Author Organization [facility] Address [address] [place] [address] Phone [phone] Care Team Providers Name Role Phone Jasmyne Nguyen M.D. Care Team Information Skin Specialist Unavailable Jasmyne Nguyen M.D. Primary Care Physician Unavailable Payers Type Date Identification Numbers Payment Provider Subscriber Health Maintenance Policy Number: [employer] Nap Jamia Thomason Paulo Organization (O) [id number] Group Number: [id number] [address] Group Name: [place] [address] PayID: [id number] Problems Date Description Provider Status Onset: 09/23/2012 Hyperlipidemia Donell Heller M.D. Active Onset: 09/23/2012 Post-herpetic polyneuropathy Donell Heller M.D. Active Onset: 12/14/2014 Gastroesophageal reflux disease Jasmyne Nguyen M.D. Active Onset: 12/14/2014 Mixed hyperlipidemia Jasmyne Nguyen M.D. Active Onset: 01/05/2016 Degenerative joint disease involving Jasmyne Nguyen M.D. Active multiple joints Onset: 01/05/2016 Mild recurrent major depression Jasmyne Nguyen M.D. 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 Meloxicam Active Tablets 15mg 90tab take 1 M15.0 s tablet [place], daily with M.D. food for arthritis Rosuvastatin Active Tablets 10mg 1 by mouth Unknown Calcium / every day Duloxetine HCL Active Caps DR 60mg 1 by mouth Unknown / Part every day Meclizine HCL 03/19 Hx Tablets 12.5mg 30tab take 1-2 R42 Jojo C. s by mouth 3 Alek, - times PEWTER F[employer]RICATOR 04/30 daily needed for vertigo Famotidine 12/13 Hx Tablets 40mg 60tab 1 tab by [place]ina s mouth Arvin, - every 12 [employer] Mometasone Furoate 12/11 Hx Cream 0.1% 45gm apply to arms twice , - a day x 1 M.D. 02/20 week as needed Methylprednisolone 09/17 Hx Tablets 8mg 45tab Use 5 . s Pills A [place], - Day For M.D. 01/04 3 Days Pills A Day For 3 3 Pills A Day For 3 Days 2 Pills X 3 Days 1 Pill X 3 Xyzal 09/17 Hx Tablets 5mg 15tab Use 1 A Jose C J. s Day For [place], - 15 Days M.D. 01/04 Amoxicillin 06/21 Hx Capsules 500mg 21cap 1 by mouth J02.9 [place]ina s three Arvin, - times a [employer]ER 07/10 day x days Calcium 600-D 09/23 Hx Tablets 600-400mg 180ta 2 po qd V70.0 Donell A. -Unit patricia Heller, - M.DAndria 12/20 Crestor Hx Tablets 10mg 90tab take 1 E78.4 s tablet [place], - daily M.D. 04/30 Cymbalta 00/[address] 60mg 90cap take one B02.23 Jasmyne / Part s capsule [place], - every day M.D. 04/30 Vital Signs Date Vital Result Comment 04/30/2017 BP Systolic 132 mmHg BP Diastolic 80 mmHg Heart Rate 80 /min Body Temperature 98.1 F Respiratory Rate 16 /min Height 60.5 inches 5'0.50" Weight 141.00 lb BMI (Body Mass Index) 27.1 kg/m2 03/19/2017 BP Systolic 128 mmHg BP Diastolic 80 mmHg Heart Rate 80 /min Body Temperature 97.9 F Respiratory Rate 14 /min Height 60.5 inches 5'0.50" Weight 139.00 lb BMI (Body Mass Index) 26.7 kg/m2 02/20/2017 BP Systolic 108 mmHg BP Diastolic 72 mmHg Heart Rate 88 /min Body Temperature 97.7 F Height 60.5 inches 5'0.50" Weight 138.00 lb BMI (Body Mass Index) 26.5 kg/m2 12/13/2016 BP Systolic 120 mmHg BP Diastolic 74 mmHg Heart Rate 78 /min Body Temperature 98.1 F Respiratory Rate 16 /min Height 60.5 inches 5'0.50" Weight 138.25 lb BMI (Body Mass Index) 26.6 kg/m2 10/01/2016 BP Systolic 100 mmHg BP Diastolic 60 mmHg Heart Rate 68 /min Body Temperature 97.8 F Respiratory Rate 16 /min Height 60.5 inches 5'0.50" Weight 135.00 lb BMI (Body Mass Index) 25.9 kg/m2 09/26/2016 BP Systolic 124 mmHg BP Diastolic 68 mmHg Heart Rate 78 /min Body Temperature 98.1 F Respiratory Rate 16 /min Height 60.5 inches 5'0.50" Weight 135.00 lb BMI (Body Mass Index) 25.9 kg/m2 01/05/2016 BP Systolic 120 mmHg BP Diastolic 70 mmHg Heart Rate 80 /min Body Temperature 97.6 F Respiratory Rate 16 /min Height 60.5 inches 5'0.50" Weight 134.00 lb BMI (Body Mass Index) 25.7 kg/m2 09/25/2015 BP Systolic 112 mmHg BP Diastolic 62 mmHg Heart Rate 72 /min Body Temperature 97.6 F Height 60.25 inches 5'0.25" Weight 140.12 lb BMI (Body Mass Index) 27.1 kg/m2 09/18/2015 BP Systolic 124 mmHg BP Diastolic 68 mmHg Heart Rate 80 /min Body Temperature 98.1 F Respiratory Rate 18 /min Height 60.25 inches 5'0.25" Weight 139.00 lb BMI (Body Mass Index) 26.9 kg/m2 07/11/2015 BP Systolic 120 mmHg BP Diastolic 64 mmHg Heart Rate 64 /min Body Temperature 98.2 F Respiratory Rate 16 /min Height 60.25 inches 5'0.25" Weight 135.25 lb BMI (Body Mass Index) 26.2 kg/m2 06/22/2015 BP Systolic 118 mmHg BP Diastolic 60 mmHg Heart Rate 92 /min Body Temperature 98.1 F Height 60.25 inches 5'0.25" Weight 133.19 lb BMI (Body Mass Index) 25.8 kg/m2 12/14/2014 BP Systolic 104 mmHg BP Diastolic 62 mmHg Heart Rate 84 /min Body Temperature 97.6 F Respiratory Rate 16 /min Height 60.25 inches 5'0.25" Weight 144.00 lb BMI (Body Mass Index) 27.9 kg/m2 06/24/2014 BP Systolic 104 mmHg BP Diastolic 60 mmHg Heart Rate 78 /min Body Temperature 99.1 F Respiratory Rate 16 /min Height 60 inches 5'0" Weight 145.00 lb BMI (Body Mass Index) 28.3 kg/m2 12/20/2013 BP Systolic 120 mmHg BP Diastolic 70 mmHg Heart Rate 72 /min Body Temperature 97.1 F Respiratory Rate 18 /min Height 60 inches 5'0" Weight 145.00 lb BMI (Body Mass Index) 28.3 kg/m2 05/21/2013 BP Systolic 120 mmHg BP Diastolic 72 mmHg Heart Rate 80 /min Body Temperature 97.1 F Respiratory Rate 18 /min Height 60 inches 5'0" Weight 139.00 lb BMI (Body Mass Index) 27.1 kg/m2 09/23/2012 BP Systolic 122 mmHg BP Diastolic 70 mmHg Heart Rate 72 /min Body Temperature 98.9 F Respiratory Rate 16 /min Height 60 inches 5'0" Weight 144.00 lb BMI (Body Mass Index) 28.1 kg/m2 02/25/2012 BP Systolic 112 mmHg BP Diastolic 78 mmHg Heart Rate 80 /min Height 60 inches 5'0" Weight 146.00 lb BMI (Body Mass Index) 28.5 kg/m2 Results Test Date Test Result H/L Range Note Urinalysis Profile 04/20/2017 Urine Color Colorless Urine Appearance Clear Urine Specific [place] 1.027 1.010-1.030 Urine pH 7.0 5-9 Urine Urobilinogen Negative Negative Urine Ketones Negative Negative Urine Protein Negative Negative Urine Leukocytes Negative Negative Urine Blood 1+ Negative Urine Nitrite Negative Negative Urine Bilirubin Negative Negative Urine Glucose Negative Negative Urine White Blood Cell Absent Absent Urine Red Blood Cell Trace(0-2/hpf) Absent Urine Bacteria Absent Absent CBC Auto Diff 04/20/2017 White Blood Count 8.3 10^3/uL 3.5-10.8 Red Blood Count 4.42 10^6/uL 4.0-5.4 Hemoglobin 13.5 g/dL 12.0-16.0 Hematocrit 40 % 35-47 Mean Corpuscular Volume 90 fL 80-97 Mean Corpuscular Hemoglobin 31 pg 27-31 Mean Corpuscular HGB Conc 34 g/dL 31-36 Red Cell Distribution Width 13 % 10.5-15 Platelet Count 168 10^3/uL 150-450 Mean Platelet Volume 8 um3 7.4-10.4 Abs Neutrophils 6.3 10^3/uL 1.5-7.7 Abs Lymphocytes 0.9 10^3/uL Low 1.0-4.8 Abs Monocytes 0.9 10^3/uL High 0-0.8 Abs Eosinophils 0.1 10^3/uL 0-0.6 Abs Basophils 0.1 10^3/uL 0-0.2 Abs Nucleated RBC 0 10^3/uL Granulocyte % 76.4 % 38-83 Lymphocyte % 10.9 % Low 25-47 Monocyte % 11.0 % High 1-9 Eosinophil % 0.6 % 0-6 Basophil % 1.1 % 0-2 Nucleated Red Blood Cells % 0.1 Comp Metabolic Panel 04/20/2017 Sodium 133 mmol/L 133-145 Potassium 3.8 mmol/L 3.5-5.0 Chloride 102 mmol/L 101-111 Co2 Carbon Dioxide 25 mmol/L 22-32 Anion Gap 6 mmol/L 2-11 Glucose 122 mg/dL High 70-100 Blood Urea Nitrogen 17 mg/dL 6-24 Creatinine 0.70 mg/dL 0.51-0.95 BUN/Creatinine Ratio 24.3 High 8-20 Calcium 9.2 mg/dL 8.6-10.3 Total Protein 6.5 g/dL 6.4-8.9 Albumin 3.9 g/dL 3.2-5.2 Globulin 2.6 g/dL 2-4 Albumin/Globulin Ratio 1.5 1-3 Total Bilirubin 0.80 mg/dL 0.2-1.0 Alkaline Phosphatase 77 U/L 34-104 Alt 12 U/L 7-52 Ast 16 U/L 13-39 Egfr Non- 82.7 >60 Egfr 106.4 >60 1 Laboratory test finding 04/20/2017 C Reactive Protein 24.90 mg/L High &lt ; 5.00 2 Ua - Non Micro (Fma) 03/19/2017 Appearance clear Color yellow Glucose, Urine (Fma/CMC/CTX) neg Bilirubin neg Ketones neg SP Grav 1.020 Blood neg PH 6.0 Protein neg Urobil 0.2 Nitrite neg Leukocytes (a/CMC/Centrex) mod Laboratory test finding 03/19/2017 Urine Culture And SEE RESULT BELOW 3 Sensitivities Ua - Micro (Fma) 03/11/2017 Appearance CLEAR Color YELLOW Glucose, Urine (Fma/CMC/CTX) NEG Bilirubin NEG Ketones NEG SP Grav 1.020 Blood TRACE-INTACT PH 7.5 Protein NEG Urobil 0.2 Nitrite NEG Leukocytes (Fma/CMC/Centrex) MOD Hyaline - /Lpf Granular - /Lpf WBC (Fma,Centrex) 10-12 RBC 0-2 Mucus - /Lpf Epith RARE /Lpf Bacteria 1+ /Hpf Amorphous - /Lpf Crystals, Fluid (Fma/CMC/CTX) - Z#Comments - Complete Blood Count 03/11/2017 WBC 4.0 x10^3/UL 3.6-9.6 RBC 4.30 x10^6/UL 3.90-5.70 HGB 13.3 g/dL 12.1-17.2 HCT 39 % 36-50 MCV 90.0 fL 82.2-97.4 MCH 30.8 pg 27.6-33.3 MCHC 34.1 g/dL 33.0-35.5 RDW 13.3 % 11.6-13.7 PLT 221 x10^3/UL 150-400 MPV 7.0 fL Low 7.4-10.4 Gran # 2.3 x10^3/UL 1.5-7.2 Lymph# 1.4 x10^3/UL 0.7-4.9 [place]# 0.3 x10^3/UL 0.1-0.9 Gran % 55.8 % 42.2-75.2 Lymph % 36.6 % 20.5-51.1 [place]% 7.6 % 1.7-9.3 Comprehensive Metabolic Prof 03/11/2017 Sodium 146 mEq/L 134-149 Potassium 4.4 mEq/L 3.6-5.5 Chloride 109 mEq/L 94-112 Carbon Dioxide 28 mEq/L 21-32 Glucose 102 mg/dL 70-105 BUN 18 mg/dL 6-26 Creatinine 0.7 mg/dL 0.6-1.4 BUN/Creat Ratio 25.7 CALC 8.0-36.0 Calcium 9.1 mg/dL 8.6-10.2 Total Protein 6.4 g/dL 6.4-8.3 Albumin 4.1 g/dL 3.8-5.5 Globulin 2.3 g/dL 2.0-4.8 A/G Ratio 1.8 CALC 0.6-2.3 Alk. Phosphatase 68 U/L 30-110 Alt (SGPT) 20 U/L 7-35 Ast (Sgot) 20 U/L 5-34 Total Bilirubin 0.5 mg/dL 0.2-1.3 GFR Non- >60 ml/min/1.73m^ >=60 GFR >60 ml/min/1.73m^ >=60 Lipid Profile 03/11/2017 Cholesterol 209 mg/dL High 120-200 Triglycerides 112 mg/dL 30-200 HDL Cholesterol 48 mg/dL 30-85 LDL (Calculated) 139 CALC High 0-129 VLDL Cholesterol 22 mg/dL 0-50 HDL Risk Factor 4.4 CALC 0.0-4.4 Laboratory test finding 03/11/2017 TSH 5.12 mIU/L 0.50-6.00 Laboratory test finding 03/06/2016 TSH 4.89 mIU/L 0.50-6.00 Free T4 0.84 ng/dL 0.75-1.54 Complete Blood Count 03/06/2016 WBC 3.5 x10^3/UL Low 3.6-9.6 4 RBC 4.38 x10^6/UL 3.90-5.70 HGB 12.8 g/dL 12.1-17.2 HCT 38 % 36-50 MCV 87.0 fL 82.2-97.4 MCH 29.3 pg 27.6-33.3 MCHC 33.5 g/dL 33.0-35.5 RDW 15.0 % High 11.6-13.7 PLT 189 x10^3/UL 150-400 MPV 6.8 fL Low 7.4-10.4 Gran # 1.6 x10^3/UL 1.5-7.2 Lymph# 1.6 x10^3/UL 0.7-4.9 [place]# 0.3 x10^3/UL 0.1-0.9 Gran % 46.1 % 42.2-75.2 Lymph % 45.2 % 20.5-51.1 [place]% 8.7 % 1.7-9.3 Laboratory test finding 02/05/2016 TSH 6.71 mIU/L High 0.50-6.00 5 Complete Blood Count 02/05/2016 WBC 3.2 x10^3/UL Low 3.6-9.6 6 RBC 4.11 x10^6/UL 3.90-5.70 HGB 11.9 g/dL Low 12.1-17.2 7 HCT 35 % Low 36-50 8 MCV 86.0 fL 82.2-97.4 MCH 29.0 pg 27.6-33.3 MCHC 33.8 g/dL 33.0-35.5 RDW 14.7 % High 11.6-13.7 PLT 196 x10^3/UL 150-400 MPV 7.3 fL Low 7.4-10.4 Gran # 1.5 x10^3/UL 1.5-7.2 Lymph# 1.5 x10^3/UL 0.7-4.9 [place]# 0.2 x10^3/UL 0.1-0.9 Gran % 45.1 % 42.2-75.2 Lymph % 48.4 % 20.5-51.1 [place]% 6.5 % 1.7-9.3 Comprehensive Metabolic Prof 02/05/2016 Sodium 140 mEq/L 134-149 Potassium 4.7 mEq/L 3.6-5.5 Chloride 101 mEq/L 94-112 Carbon Dioxide 24 mEq/L 21-32 Glucose 94 mg/dL 70-105 BUN 18 mg/dL 6-26 Creatinine 0.9 mg/dL 0.6-1.4 BUN/Creat Ratio 20.0 CALC 8.0-36.0 Calcium 9.5 mg/dL 8.6-10.2 Total Protein 6.4 g/dL 6.4-8.3 Albumin 4.2 g/dL 3.8-5.5 Globulin 2.2 g/dL 2.0-4.8 A/G Ratio 1.9 CALC 0.6-2.3 Alk. Phosphatase 76 U/L 30-110 Alt (SGPT) 22 U/L 7-35 Ast (Sgot) 27 U/L 5-34 Total Bilirubin 0.5 mg/dL 0.2-1.3 GFR Non- >60 ml/min/1.73m^ >=60 GFR >60 ml/min/1.73m^ >=60 Lipid Profile 02/05/2016 Cholesterol 178 mg/dL 120-200 Triglycerides 87 mg/dL 30-200 HDL Cholesterol 56 mg/dL 30-85 LDL (Calculated) 105 CALC 0-129 VLDL Cholesterol 17 mg/dL 0-50 HDL Risk Factor 3.2 CALC 0.0-4.4 Lipid Profile 07/14/2014 Cholesterol 170 mg/dL 120-200 Triglycerides 87 mg/dL 30-200 HDL Cholesterol 45 mg/dL 30-85 LDL (Calculated) 108 CALC 0-129 VLDL Cholesterol 17 mg/dL 0-50 HDL Risk Factor 3.8 CALC 0.0-4.4 Comprehensive Metabolic Prof 07/14/2014 Sodium 140 mEq/L 134-149 Potassium 5.2 mEq/L 3.6-5.5 Chloride 102 mEq/L 94-112 Carbon Dioxide 29 mEq/L 21-32 Glucose 94 mg/dL 70-105 BUN 18 mg/dL 6-26 Creatinine 0.9 mg/dL 0.6-1.4 BUN/Creat Ratio 20.0 CALC 8.0-36.0 Calcium 9.4 mg/dL 8.6-10.2 Total Protein 6.6 g/dL 6.4-8.3 Albumin 3.9 g/dL 3.8-5.5 Globulin 2.7 g/dL 2.0-4.8 A/G Ratio 1.4 CALC 0.6-2.3 Alk. Phosphatase 79 U/L 30-110 Alt (SGPT) 20 U/L 7-35 Ast (Sgot) 25 U/L 5-34 Total Bilirubin 0.5 mg/dL 0.2-1.3 Complete Blood Count 07/14/2014 WBC 3.7 x10^3/UL 3.6-9.6 RBC 4.35 x10^6/UL 3.90-5.70 HGB 12.7 g/dL 12.1-17.2 HCT 39 % 36-50 MCV 90.0 fL 82.2-97.4 MCH 29.2 pg 27.6-33.3 MCHC 33.0 g/dL 33.0-35.5 RDW 14.0 % High 11.6-13.7 PLT 281 x10^3/UL 150-400 MPV 7.8 fL 7.4-10.4 Gran # 2.0 x10^3/UL 1.5-7.2 Lymph# 1.4 x10^3/UL 0.7-4.9 [place]# 0.3 x10^3/UL 0.1-0.9 Gran % 52.0 % 42.2-75.2 Lymph % 39.5 % 20.5-51.1 [place]% 8.5 % 1.7-9.3 Laboratory test finding 06/24/2014 Quickstrep Neg Negative Throat - Beta Strep Fma NEG@48HRS Comprehensive Metabolic Prof 09/28/2012 Albumin 4.4 g/dL 3.8-5.5 Alk. Phos. 83 U/L 30-110 Alt (SGPT) 19 U/L 7-35 Ast (Sgot) 31 U/L 5-34 BUN 18 mg/dL 6-26 Calcium 9.0 mg/dL 8.6-10.2 Chloride 103 mEq/L 94-112 Creatinine 0.8 mg/dL 0.6-1.4 Carbon Dioxide 23 mEq/L 21-32 Glucose 103 mg/dL 70-105 Sodium 138 mEq/L 134-149 Total Bilirubin 0.5 mg/dL 0.2-1.3 Total Protein 6.5 g/dL 6.3-8.1 Potassium 4.0 mEq/L 3.6-5.5 Globulin 2.1 g/dL 2.0-4.8 A/G Ratio 2.1 Calc 0.6-2.3 BUN/Creat Ratio 22.7 Calc 8.0-36.0 Lipid Profile 09/28/2012 Cholesterol 158 mg/dL 120-200 HDL 44 mg/dL 30-85 Triglycerides 103 mg/dL 30-200 HDL Risk Factor 3.6 CALC 0.0-4.4 LDL (Calculated) 94 CALC 0-129 VLDL (Calculated) 21 mg/dL 0-50 CBC Electronic (a) 09/28/2012 WBC 3.4 Low 3.6-9.6 RBC 4.02 3.90-5.70 Hemoglobin (Fma/CMC/CTX) 12.4 g/dL 12.1 - 17.2 Hematocrit (Fma/CMC/CTX) 36.4 % 36.1 - 50.3 Platelets 250 10^3/ul 150-400 Lymph% 32.8 20.5-51.1 Mixed% 7.3 Neutrophils % 59.9 Mean Corpuscular Vol 90 82.2-97.4 Mean Corpuscular Hemoglobin 30.9 27.6-33.3 Mean Corpuscular Hemo Concen 34.2 32.0-36.0 RDW 12.4 11.6-13.7 Mean Platelet Volume 7.9 6.5-11.0 Ua - Non Micro ([facility]) 09/23/2012 Appearance CLEAR Color YELLOW Glucose, Urine (Fma/CMC/CTX) NEG Bilirubin NEG Ketones NEG SP Grav 1.010 Blood NEG PH 5.5 Protein NEG Urobil 0.2 Nitrite NEG Leukocytes (a/CMC/Centrex) NEG Laboratory test finding 07/30/2012 Troponin I 0 ng/mL 0-0.06 9 TSH (Thyroid Stimulating Horm) 3.73 miu/mL 0.34-5.60 C Reactive Protein < 0.5 mg/dL Less than 0.5 CKMB 07/30/2012 CKMB ng/mL 1.6 ng/mL 0.3-4.0 10 Laboratory test finding 07/30/2012 Magnesium 2.1 mg/dL 1.7-2.6 Creatine Kinase 73 U/L 0-200 Comp Metabolic Panel 07/30/2012 Sodium 140 mmol/L 133-145 Potassium 3.7 mmol/L 3.5-5.0 Chloride 107 mmol/L 101-111 Co2 Carbon Dioxide 29.0 mmol/L 22-32 Anion Gap 4.0 mmol/L 2-11 Glucose 109 mg/dL High 70-100 Blood Urea Nitrogen 25 mg/dL High 6-24 Creatinine 0.80 mg/dL 0.50-1.40 BUN/Creatinine Ratio 31.3 High 8-20 Calcium 9.1 mg/dL 8.1-9.9 Total Protein 6.9 g/dL 6.2-8.1 Albumin 3.8 g/dL 3.2-5.2 Globulin 3.1 g/dL 2-4 Albumin/Globulin Ratio 1.2 1-3 Total Bilirubin 0.8 mg/dL 0.4-1.5 Alkaline Phosphatase 75 U/L 30-110 Alt 18 U/L 14-54 Ast 25 U/L 12-42 Egfr Non- 71.8 >60 Egfr 92.3 >60 11 Inr/Protime 07/30/2012 Inr 0.90 0.87-0.97 CBC Auto Diff 07/30/2012 White Blood Count 5.9 10^3/uL 4.8-10.8 Red Blood Count 4.19 10^6/uL 4.0-5.4 Hemoglobin 12.6 g/dL 12.0-16.0 Hematocrit 38 % 35-47 Mean Corpuscular Volume 91 fL 80-97 Mean Corpuscular Hemoglobin 30 pg 27-31 Mean Corpuscular HGB Conc 33 g/dL 31-36 Red Cell Distribution Width 13 % 10.5-15 Platelet Count 183 10^3/uL 150-450 Mean Platelet Volume 9 um3 7.4-10.4 Abs Neutrophils 4.2 10^3/uL 1.5-7.7 Abs Lymphocytes 1.1 10^3/uL 1.0-4.8 Abs Monocytes 0.5 10^3/uL 0-0.8 Abs Eosinophils 0.1 10^3/uL 0-0.6 Abs Basophils 0.1 10^3/uL 0-0.2 Abs Nucleated RBC 0 10^3/uL Granulocyte % 71.4 % 38-83 Lymphocyte % 18.3 % Low 25-47 Monocyte % 8.3 % 1-9 Eosinophil % 0.9 % 0-6 Basophil % 1.1 % 0-2 Nucleated Red Blood Cells % 0 Urine Culture And 07/30/2012 Urine Culture (SEE NOTE) 12 Sensitivities Urine Microscopic 07/30/2012 Urine WBC 2+ (>10-30 None Seen 13 /hpf) Urine RBC None Seen None Seen Urinalysis 07/30/2012 Urine Color Yellow Urine Appearance Clear Urine Specific [place] 1.022 1.010-1.030 Urine Esterase 3+ Negative Urine Nitrate Negative Negative Urine Urobilinogen Negative E.U./dL Negative Urine Protein Negative mg/dL Negative Urine pH 7.5 5-9 Urine Blood Negative Negative Urine Ketones Negative mg/dL Negative Urine Bilirubin Negative Negative Urine Glucose Negative mg/dL Negative Laboratory test finding 07/30/2012 Troponin I 0 ng/mL 0-0.06 14 1 Because ethnic data is not always readily available, this report includes an eGFR for both -Americans and non- Americans. The National Kidney Disease Education Program (NKDEP) does not endorse the use of the MDRD equation for patients that are not between the ages of 18 and 70, are , have extremes of body size, muscle mass, or nutritional status, or are non- or non-. According to the National Kidney Foundation, irrespective of diagnosis, the stage of the disease is based on the level of kidney function: Stage Description GFR(mL/min/1.73 m(2)) 1 Kidney damage with normal or decreased GFR 90 2 Kidney damage with mild decrease in GFR 60-89 3 Moderate decrease in GFR 30-59 4 Severe decrease in GFR 15-29 5 Kidney failure <15 (or dialysis) 2 Acute inflammation: >10.00 3 SEE RESULT BELOW Name: JAMIA BATES : [address]: Jojo Gaston [employer] Acct: [id number] Unit: [id number] AGE: 71 Location: [facility] Re03/19/17 SEX: F Status: REG REF SPEC: [id number] TRISTAN: 03/19/17-[address]: Jojo Gaston NP REQ: [id number] RECD: 03/19/17 STATUS: COMP _ [facility]: Urine Culture COMMENTS: [id number] mcgovern urine c s tube Urine Source: Random Procedure Result Reported Site Urine Culture Final 03/20/17- 1650 ML No growth of clinically significant organisms * ML - MAIN LAB ([facility]) . END OF REPORT * ML=Testing performed at Main Lab DEPARTMENT OF PATHOLOGY, [address] [place] [address] Kervin Shell M.D. Director [facility] # [id number] 4 consistent w/ previous results 5 RESULTS VERIFIED BY REPEAT ANALYSIS 6 RESULTS VERIFIED BY REPEAT ANALYSIS 7 RESULTS VERIFIED BY REPEAT ANALYSIS 8 RESULTS VERIFIED BY REPEAT ANALYSIS 9 Reference Range and Interpretation: TnI (ng/mL) Interpretation Less Than 0.06 ng/mL Not supportive of diagnosis of [place] 0.06 - 0.50 ng/mL Indeterminate: suggest serial studies if clinically indicated. Greater than 0.5 ng/mL Consistent with diagnosis of [place] 10 CKMB interpretation should be made in conjunction with clinical symptoms, patient history and EKG changes. 11 Because ethnic data is not always readily available, this report includes an eGFR for both -Americans and non- Americans. The National Kidney Disease Education Program (NKDEP) does not endorse the use of the MDRD equation for patients that are not between the ages of 18 and 70, are , have extremes of body size, muscle mass, or nutritional status, or are non- or non-. According to the National Kidney Foundation, irrespective of diagnosis, the stage of the disease is based on the level of kidney function: Stage Description GFR(mL/min/1.73 m(2)) 1 Kidney damage with normal or decreased GFR 90 2 Kidney damage with mild decrease in GFR 60-89 3 Moderate decrease in GFR 30-59 4 Severe decrease in GFR 15-29 5 Kidney failure <15 (or dialysis) 12 RUN DATE: 08/01/12 [facility] LAB LIVE PAGE 1 RUN TIME: [address] [place] [address] Specimen Inquiry Name: JAMIA BATES : [address]: Gerry Angela DO Acct: [id number] Unit: [id number] AGE: 67 Location: ED Re07/30/12 SEX: F Status: DEP ER SPEC: [id number] TRISTAN: 07/30/12-[address]: Gerry Angela DO REQ: [id number] RECD: 07/30/12 STATUS: MAURO LAM DR: Jhonny Hanna MD _ SOURCE: URINE SPDESC: ORDERED: Urine Culture Procedure Result Verified Site Urine Culture Final 08/01/12- 0932 ML Organism 1 NORMAL LISA [place] Count 50-75,000 (Many) CFU/ML END OF REPORT * ML=Testing performed at Main Lab DEPARTMENT OF PATHOLOGY, [address] [place] [address] Kervin Shell M.D. Director [facility] Permit #[id number] 13 2+ (>10-30 /hpf) 14 Reference Range and Interpretation: TnI (ng/mL) Interpretation Less Than 0.06 ng/mL Not supportive of diagnosis of [place] 0.06 - 0.50 ng/mL Indeterminate: suggest serial studies if clinically indicated. Greater than 0.5 ng/mL Consistent with diagnosis of [place] Procedures Date CPT Code Description Status Comment 03/06/2017 Mammogram Completed 02/05/2016 15640 Dxa Bone Density Study One Or More Sites Completed Axial Skeleton 02/05/2016 Bone Mineral Density Test Completed osteopenia 07/11/2015 75475 Destruction Of Flat Warts Or Molluscum Completed Contagiosum, Milia To 15 01/05/2015 Mammogram Completed 10/09/2012 30418 Dxa Bone Density Vertebarl FX Assessment Completed 10/09/2012 92451 Dxa Bone Density Study One Or More Sites Completed Axial Skeleton 10/09/2012 Mammogram Completed 03/10/2009 Colonoscopy Completed due 2020 Encounters Type Date Location Provider CPT E/M Dx Office Visit 03/19/2017 11:30a [place] [address] R42 R31.9 Office Visit 02/20/2017 10:00a Main Office Jasmyne Nguyen M.D. 57381 Z00.00 E78.2 F33.0 M15.0 Office Visit 12/13/2016 2:45p [facility] ALY Cordova 89256 L23.7 L29.9 Office Visit 10/01/2016 10:00a Main Office Hussein Lares M.D. 99702 H69.91 Office Visit 09/26/2016 5:20p Main Office Jasmyne Nguyen M.D. 04021 Z01.818 H25.813 Office Visit 01/05/2016 1:50p [facility] Jasmyne Nguyen M.D. 27010 Z00.00 E78.2 L84 K21.9 M15.0 F33.0 Office Visit 09/25/2015 3:00p [facility] Vicki LouiseLeonid 31929 L84 Office Visit 09/18/2015 3:10p [facility] Office Jose C Hernandez M.D. 62156 L84 Office Visit 07/11/2015 11:00a [facility] Office Jasmyne Nguyen M.D. 78995 B07.0 M79.674 Office Visit 06/22/2015 9:30a [facility] Office Catalina GuerrierbhartGAURIP 86927 J02.9 Office Visit 12/14/2014 2:00p [facility] Jasmyne Nguyen M.D. 10587 Z00.00 K21.9 E78.2 Z12.31 Z12.11 Office Visit 06/24/2014 10:00a [place] [address] 462 Office Visit 12/20/2013 4:20p [facility] Jasmyne Nguyen M.D. 03553 272.4 053.13 530.81 715.09 Office Visit 05/21/2013 9:30a [facility] Leonid Boyd 46750 386.11 079.99 Office Visit 09/23/2012 1:10p [facility] Donell Heller M.D. 20100 V70.0 V77.91 V76.10 V76.51 272.4 053.13 V49.81 V76.41 Office Visit 02/25/2012 12:15p [facility] Office Leonid Boyd 23068 715.09 272.4 530.81 Plan of Care 04/30/2017 - Jasmyne Nguyen M.D.K12.2 Cellulitis and abscess of mouthComments: improving, monitor for worsening earrnzftN81.2 Cramp and spasmComments:pain medications as toleratedAllComments:~B_~U_Medication Management~b_~u_ Patient Understands medications she's taking? Yes No Are there Barriers to Adherence? Yes No Has the patient been asked about herbal supplements and therapies, and OTC meds? Yes No
[2017-05-09 11:04] LABS: INR 1.14 (0.77-1.02)
[2017-05-09 11:12] LABS: EGFR Non-African American 64.4 (>60)
[2017-05-09] MEDS ORDERED: Potassium Chlor TAB* 20 MEQ TAB.ER PO ONE (11:42)
[2017-05-09] MEDS ORDERED: NS 0.9% 1000 ML* 1,000 ML BOLUS SCH (12:30)
[2017-05-09] MEDS ORDERED: metroNIDAZOLE TAB* 250 MG PO ONE (13:10)
[2017-05-09 14:18] VITALS: BP 104/73
--- NOTE | 2017-05-09 21:07 | ED ---
Anuja Parsons Nilda, scribed for Joana Murillo MD on 05/09/17 at 1036 . GI/ HPI - HPI Summary HPI Summary: This patient is a 71 year old F presenting to [facility] with a chief complaint of constant diarrhea for the past 3 days. Patient states diarrhea began as loose stools but is now yellowish and watery. The patient rates the pain 0/10 in severity. Symptoms aggravated and alleviated by nothing. Patient reports dizziness and weakness that began today, but denies abd pain, chest pain, and SOB. She states she has been on abx for an oral abscess last month. However, she notes on evaluation by Dr. Keenan (ENT) an infection was not found. - History of Current Complaint Chief Complaint: EDNauseaVomitDiarrh Stated Complaint: GI PROBLEM,WEAKNESS Hx Obtained From: Patient Onset/Duration: Started Days Ago, Atraumatic, Still Present Timing: Constant, Lasting Days - 3 days Severity: Moderate Current Severity: Moderate Pain Intensity: 0 Location of Pain: None Associated Signs and Symptoms: Positive: Dizziness, Weakness, Other: - weakness and dizziness; negative abd pain, CP, SOB. Additional Signs & Symptoms: Positive: Recent Antibiotics Aggravating Factor(s): Nothing Alleviating Factor(s): Nothing - Additional Pertinent History Primary Care Physician: [id number] - Allergy/Home Medications Allergies/Adverse Reactions: Allergies Allergy/AdvReac Type Severity Reaction Status Date / Time prednisone Allergy See Comment Verified 05/09/17 10:12 PMH/Surg Hx/FS Hx/Imm Hx Endocrine/Hematology History: Denies: Hx Diabetes Cardiovascular History: Reports: Hx Hypercholesterolemia Denies: Hx Hypertension GI History: Reports: Hx Gastroesophageal Reflux Disease History: Denies: Hx Renal Disease Musculoskeletal History: Reports: Hx Arthritis - neck Sensory History: Reports: Hx Cataracts - both eyes, Hx Contacts or Glasses - glasses Denies: Hx Hearing Aid Comment Only: Hx Glaucoma - possible slight beginning Opthamlomology History: Reports: Hx Cataracts - both eyes, Hx Contacts or Glasses - glasses Comment Only: Hx Glaucoma - possible slight beginning Psychiatric History: Reports: Hx Anxiety - Cancer History Hx Chemotherapy: No Hx Radiation Therapy: No - Surgical History Surgery Procedure, Year, and Place: cararat surgery bilat eyes. 04/2017 incision for possible oral abscess (Dr. Keenan) Infectious Disease History: No Infectious Disease History: Denies: Hx Clostridium Difficile, Hx Hepatitis, Hx Human Immunodeficiency Virus (HIV), Hx of Known/Suspected MRSA, Hx Shingles, Hx Tuberculosis, Hx Known/ Suspected VRE, Hx Known/Suspected VRSA, History Other Infectious Disease, Traveled Outside the [place] in Last 30 Days - Family History Known Family History: Positive: Cardiac Disease - [place] (mother 62 y.o), Other - AAA (father) - Social History Alcohol Use: Occasionally Substance Use Type: Reports: None Smoking Status (MU): Never Smoked Tobacco Review of Systems Constitutional: Negative Negative: Chest Pain Negative: Shortness Of Breath Positive: Diarrhea. Negative: Abdominal Pain Neurological: Other - dizziness Positive: Weakness Psychological: Normal All Other Systems Reviewed And Are Negative: Yes Physical Exam - Summary Physical Exam Summary: Appearance: Ill-appearing, moderate pain distress, Well-nourished Skin: Warm, color reflects adequate perfusion Head: Normal Head/Face inspection Eyes: Conjunctiva clear ENT: Normal inspection Neck: Supple, no nodes, no JVD. Respiratory: Lungs clear, Normal breath sounds, no respiratory distress Cardio: RRR, No murmur, pulses normal, brisk capillary refill Abdomen: soft, Mild diffuse abd tenderness, no masses, no guarding, no rebound Bowel sounds: present Musculoskeletal: Strength Intact/ ROM intact. No calf tenderness. No edema. Neuro: Alert, muscle tone normal, facial symmetry, speech normal, sensory/motor intact Psychological: Normal Triage Information Reviewed: Yes Vital Signs On Initial Exam: Initial Vitals Temp Pulse Resp BP Pulse Ox 99.6 F 104 18 117/74 95 05/09/17 10:07 05/09/17 10:07 05/09/17 10:07 05/09/17 10:07 05/09/17 10:07 Vital Signs Reviewed: Yes Diagnostics - Vital Signs Vital Signs Temp Pulse Resp BP Pulse Ox 05/09/17 10:07 99.6 F 104 18 117/74 95 - Laboratory Result Diagrams: 05/09/17 10:35 05/09/17 10:35 Lab Statement: Any lab studies that have been ordered have been reviewed, and results considered in the medical decision making process. - EKG 1024 Cardiac Rate: NL EKG Rhythm: Sinus Rhythm - 96 bpm EKG Interpretation: An EKG at 1024 reveals nml AVIVCT, nml QTc, and left axis - 13. EKG Comparison: Other - EKG has changed since 07/30/12, revealing ST elevation in V1 and V2. 1229 Cardiac Rate: NL EKG Rhythm: Sinus Rhythm - [address] Segment: Non-Specific Ectopy: None EKG Interpretation: nml AVIVCT, nml QTc, and nml axis. L-axis -13. Per Dr. Sarmiento : no STEMI. Re-Evaluation - Re-Evaluation First Eval Re-Evaluation Time: 12:41 Change: Improved Comment: Pt reports no abd pain and no CP. She states she never had abd pain or CP. Diarrhea was more mucousy with no blood. Shes now eating crackers and tolerating. Second Eval Re-Evaluation Time: 13:03 Change: Improved Comment: Discussed lab results and treatment for C. Diff. Pt is still presenting with no abd pain. GIGU Course/Dx - Course Course Of Treatment: This pt is a 71 year old F presenting to [facility] with a chief complaint of constant diarrhea (now watery and yellowish) for the past 3 days. Today pt reports dizziness and weakness. Pt states she was recently treated extensively with abx last month. An EKG reveals NSR, 96 bpm, nml AVIVCT , nml QTc, and left axis -13. EKG has changed since 07/30/12, revealing ST elevation in V1 and V2. [1220] Discussed EKG with Dr. Sarmiento (casino operations supervisor), who does not think EKG represents a STEMI. An EKG at 1229 reveals NSR, 90 bpm, nml AVIVCT, nml QTc, and nml axis. Left axis -13. Discussed with Dr. Sarmiento: no STEMI. Labs reveal stool occult blood is negative and C. Diff is positive. Pt medications reviewed this visit. Allergies Noted. Pt is stable and will be D/ C with a Dx of C. diff colitis and diarrhea, a prescription for Flagyl, and a follow up with PCP. Pt understands and is agreeable with this plan. - Diagnoses Differential Diagnoses - Female: Colitis, Dehydration, Diverticulitis, Diarrhea , Gastroenteritis (Viral), Gastroenteritis (Bacterial) Provider Diagnoses: Diarrhea, C. difficile colitis, Hypokalemia - Physician Notifications Discussed Care Of Patient With: Jasson Sarmiento - Cardiology Time Discussed With Above Provider: 10:24 Instructed by Provider To: Other - discussed EKG. He does not believe EKG reveals a STEMI. Discharge - Discharge Plan Condition: Stable Disposition: HOME Prescriptions: metroNIDAZOLE [Flagyl 500 MG TAB] 500 mg PO TID #42 tab Ondansetron ODT TAB* [Zofran 4 MG Odt TAB*] 4 mg PO Q8H PRN #20 tab.odt PRN Reason: Vomiting Patient Education Materials: Metronidazole (By mouth), Clostridium Difficile Infection (ED), Acute Diarrhea (ED) Forms: *Work Release Referrals: Jasmyne Nguyen MD [Primary Care Provider] - 2 Days Additional Instructions: You were given your first dose Metronidazole (500 mg) in the ER to start treatment of the C. diff colitis. We also gave you one dose of potassium 40 mEq , and a liter of normal saline IV. Have definite follow up with Dr. Nguyen within 3-5 days. RETURN TO THE EMERGENCY DEPARTMENT FOR CHANGING OR WORSENING SYMPTOMS. The documentation as recorded by the Anuja barker Nilda accurately reflects the service I personally performed and the decisions made by me, Joana Murillo MD.
== END 2017-05-09 14:17 | disposition home or self-care (01) ==
LOC: ED 10:05
DX: A04.72 Enterocolitis due to Clostridium difficile, not specified as recurrent (principal); E87.6 Hypokalemia; E78.00 Pure hypercholesterolemia, unspecified; K21.9 Gastro-esophageal reflux disease without esophagitis; F41.9 Anxiety disorder, unspecified
CPT/HCPCS: 36415; 80053; 82150; 82272; 82550; 83605; 83690; 83735; 84484; 85025; 85610; 86140; 87045; 87046; 87077; 87493; 87899; 93005; 99282; A9270-GY

== ENCOUNTER 2017-06-01 19:23 | Emergency (ER) | payer OTHER ==
--- OUTSIDE RECORDS SUMMARY | 2017-06-01 19:39 | XMS REPORT ---
:1945 External Reference #:[id number] Author Organization [facility] Address [address] [place] [address] Phone [phone] Care Team Providers Name Role Phone Jasmyne Nguyen M.D. Care Team Information Home Staging Specialist Unavailable Jasmyne Nguyen M.D. Primary Care Physician Unavailable Payers Type Date Identification Numbers Payment Provider Subscriber Health Maintenance Policy Number: [employer] Nap Jamia Thomason [employer] (O) [id number] Group Number: [id number] 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 Meloxicam Active Tablets 15mg 90tab take 1 M15.0 s tablet [place], daily with M.D. food for arthritis Rosuvastatin Active Tablets 10mg 1 by mouth Unknown Calcium / every day Duloxetine HCL Active Caps DR 60mg 1 by mouth Unknown / Part every day Meclizine HCL 03/19 Hx Tablets 12.5mg 30tab take 1-2 R42 Jojo C. s by mouth 3 Alek, - times TACTICAL DEBRIEFER OFFICER 04/30 daily needed for vertigo Famotidine 12/13 Hx Tablets 40mg 60tab 1 tab by Catalina s mouth Arvin, - every 12 SHIP DESIGN TEACHER Mometasone Furoate 12/11 Hx Cream 0.1% 45gm [...] Catalina s three Arvin, - times a SHIP DESIGN TEACHER 07/10 day x days Calcium 600-D 09/23 Hx Tablets 600-400mg 180ta 2 po qd V70.0 Donell A. -Unit patricia Heller, - M.DAndria 12/20 Crestor Hx Tablets 10mg 90tab take 1 E78.4 s tablet [place], - daily M.D. 04/30 Cymbalta 00/[address] 60mg 90cap take one B02.23 Jasmyne / Part s capsule [place], - every day M.D. 04/30 Vital Signs Date Vital Result Comment 05/15/2017 BP Systolic 106 mmHg BP Diastolic 62 mmHg Heart Rate 92 /min Body Temperature 98.1 F Respiratory Rate 16 /min Height 60.5 inches 5'0.50" Weight 137.12 lb BMI (Body Mass Index) 26.3 kg/m2 04/30/2017 BP Systolic 132 mmHg BP Diastolic [...] Test Date Test Result H/L Range Note Laboratory test finding 05/09/2017 Stool Occult Blood SEE RESULT BELOW 1 C Difficile PCR SEE RESULT BELOW 2 Stool Culture SEE RESULT BELOW 3 Laboratory test finding 05/09/2017 Troponin I 0.00 ng/mL <0.04 Comp Metabolic Panel 05/09/2017 Sodium 135 mmol/L 133-145 Potassium 3.4 mmol/L Low 3.5-5.0 Chloride 102 mmol/L 101-111 Co2 Carbon Dioxide 26 mmol/L 22-32 Anion Gap 7 mmol/L 2-11 Glucose 109 mg/dL High 70-100 Blood Urea Nitrogen 24 mg/dL 6-24 Creatinine 0.87 mg/dL 0.51-0.95 BUN/Creatinine Ratio 27.6 High 8-20 Calcium 9.3 mg/dL 8.6-10.3 Total Protein 6.7 g/dL 6.4-8.9 Albumin 3.8 g/dL 3.2-5.2 Globulin 2.9 g/dL 2-4 Albumin/Globulin Ratio 1.3 1-3 Total Bilirubin 0.70 mg/dL 0.2-1.0 Alkaline Phosphatase 71 U/L 34-104 Alt 21 U/L 7-52 Ast 20 U/L 13-39 Egfr Non- 64.4 >60 Egfr 82.8 >60 4 Laboratory test finding 05/09/2017 Magnesium 2.0 mg/dL 1.9-2.7 Amylase 40 U/L 29-103 Lipase 20 U/L 11.0-82.0 Creatine Kinase(CK) 31 U/L 10-223 C Reactive Protein 126.25 mg/L High < 5.00 5 Lactic Acid 1.3 mmol/L 0.5-2.0 6 Inr/Protime 05/09/2017 Inr 1.14 High 0.77-1.02 Urinalysis Profile 04/20/2017 Urine Color Colorless Urine Appearance Clear Urine Specific [place]bird 1.027 1.010-1.030 Urine pH 7.0 5-9 Urine [...] Egfr Non- 82.7 >60 Egfr 106.4 >60 7 Laboratory test 04/20/2017 C Reactive Protein 24.90 mg/L High < 5.00 8 finding Laboratory test 03/19/2017 Urine Culture And SEE RESULT 9 finding Sensitivities BELOW Ua - Non Micro (Fma) 03/19/2017 Appearance clear Color yellow Glucose, Urine (Fma/CMC/CTX) neg Bilirubin neg Ketones neg SP Grav 1.020 Blood neg PH 6.0 Protein neg Urobil 0.2 Nitrite neg Leukocytes (a/CMC/Centrex) mod Ua - Micro (Fma) 03/11/2017 Appearance CLEAR Color YELLOW Glucose, Urine (Fma/CMC/CTX) NEG Bilirubin NEG Ketones NEG SP Grav 1.020 Blood TRACE-INTACT PH 7.5 Protein NEG Urobil 0.2 Nitrite NEG Leukocytes (a/CMC/Centrex) MOD Hyaline - /Lpf Granular - /Lpf WBC (a,Centrex) 10-12 RBC 0-2 Mucus - /Lpf Epith [...] 2.3 x10^3/UL 1.5-7.2 Lymph# 1.4 x10^3/UL 0.7-4.9 [place]# 0.3 x10^3/UL 0.1-0.9 Gran % 55.8 % 42.2-75.2 Lymph % 36.6 % 20.5-51.1 [place]% 7.6 % 1.7-9.3 Comprehensive Metabolic Prof 03/11/2017 [...] Count 03/06/2016 WBC 3.5 x10^3/UL Low 3.6-9.6 10 RBC 4.38 x10^6/UL 3.90-5.70 HGB 12.8 g/dL 12.1-17.2 HCT 38 % 36-50 MCV 87.0 fL 82.2-97.4 MCH 29.3 pg 27.6-33.3 MCHC 33.5 g/dL 33.0-35.5 RDW 15.0 % High 11.6-13.7 PLT 189 x10^3/UL 150-400 MPV 6.8 fL Low 7.4-10.4 Gran # 1.6 x10^3/UL 1.5-7.2 Lymph# 1.6 x10^3/UL 0.7-4.9 [place]# 0.3 x10^3/UL 0.1-0.9 Gran % 46.1 % 42.2-75.2 Lymph % 45.2 % 20.5-51.1 [place]% 8.7 % 1.7-9.3 Laboratory test finding 02/05/2016 TSH 6.71 mIU/L High 0.50-6.00 11 Complete Blood Count 02/05/2016 WBC 3.2 x10^3/UL Low 3.6-9.6 12 RBC 4.11 x10^6/UL 3.90-5.70 HGB 11.9 g/dL Low 12.1-17.2 13 HCT 35 % Low 36-50 14 MCV 86.0 fL 82.2-97.4 MCH 29.0 pg 27.6-33.3 MCHC 33.8 g/dL 33.0-35.5 RDW 14.7 % High 11.6-13.7 PLT 196 x10^3/UL 150-400 MPV 7.3 fL Low 7.4-10.4 Gran # 1.5 x10^3/UL 1.5-7.2 Lymph# 1.5 x10^3/UL 0.7-4.9 [place]# 0.2 x10^3/UL 0.1-0.9 Gran % 45.1 % 42.2-75.2 Lymph % 48.4 % 20.5-51.1 [place]% 6.5 % 1.7-9.3 Comprehensive Metabolic Prof 02/05/2016 [...] 2.0 x10^3/UL 1.5-7.2 Lymph# 1.4 x10^3/UL 0.7-4.9 [place]# 0.3 x10^3/UL 0.1-0.9 Gran % 52.0 % 42.2-75.2 Lymph % 39.5 % 20.5-51.1 [place]% 8.5 % 1.7-9.3 Laboratory test finding 06/24/2014 [...] Volume 7.9 6.5-11.0 Ua - Non Micro ([facility]) 09/23/2012 Appearance CLEAR Color YELLOW Glucose, Urine (a/CMC/CTX) NEG Bilirubin NEG Ketones NEG SP Grav 1.010 Blood NEG PH 5.5 Protein NEG Urobil 0.2 Nitrite NEG Leukocytes ([facility]/Centrex) NEG Laboratory test finding 07/30/2012 Troponin I 0 ng/mL 0-0.06 15 TSH (Thyroid Stimulating Horm) 3.73 miu/mL 0.34-5.60 C Reactive Protein < 0.5 mg/dL Less than 0.5 CKMB 07/30/2012 CKMB ng/mL 1.6 ng/mL 0.3-4.0 16 Laboratory test finding 07/30/2012 Magnesium 2.1 mg/dL [...] Egfr Non- 71.8 >60 Egfr 92.3 >60 17 Inr/Protime 07/30/2012 Inr 0.90 0.87-0.97 CBC Auto [...] Culture And 07/30/2012 Urine Culture (SEE NOTE) 18 Sensitivities Urine Microscopic 07/30/2012 Urine WBC 2+ (>10-30 None Seen 19 /hpf) Urine RBC None Seen None Seen Urinalysis 07/30/2012 Urine Color Yellow Urine Appearance Clear Urine Specific [place]bird 1.022 1.010-1.030 Urine Esterase 3+ Negative Urine Nitrate Negative Negative Urine Urobilinogen Negative E.U./dL Negative Urine Protein Negative mg/dL Negative Urine pH 7.5 5-9 Urine Blood Negative Negative Urine Ketones Negative mg/dL Negative Urine Bilirubin Negative Negative Urine Glucose Negative mg/dL Negative Laboratory test finding 07/30/2012 Troponin I 0 ng/mL 0-0.06 20 1 SEE RESULT BELOW Name: PAULOJAMIA B : [address]: Joana Murillo MD Acct: [id number] Unit: [id number] AGE: 71 Location: ED Re05/09/17 SEX: F Status: REG ER SPEC: [id number] TRISTAN: 05/09/[address] [facility] [address]: Joana Murillo MD REQ: [id number] RECD: 05/09/17 STATUS: MAURO LAM DR: Jasmyne Nguyen MD _ SOURCE: STOOL SPDESC: ORDERED: Occult Bl, Diag Procedure Result Reported Site Stool Occult Blood (1) Final 05/09/17- 1232 ML Stool Occult Blood Negative * ML - Main Lab . END OF REPORT DEPARTMENT OF PATHOLOGY, [address] [place] [address] Kervin Shell M.D. Director [facility] # [id number] 2 SEE RESULT BELOW Name: JAMIA BATES : [address]: Joana Murillo MD Acct: [id number] Unit: [id number] AGE: 71 Location: ED Re05/09/17 SEX: F Status: REG ER SPEC: [id number] TRISTAN: 05/09/[address] [facility] [address]: Joana Murillo MD REQ: [id number] RECD: 05/09/17 STATUS: MAURO LAM DR: Jasmyne Nguyen MD _ SOURCE: STOOL SPDESC: ORDERED: C. diff PCR COMMENTS: Verbal to [id number] by [id number] at 1259 on 05/09/17. Results read back accurately. Procedure Result Reported Site Stool Specimen Description Final 05/09/17- 1221 ML Stool Color Green Stool Form Nonformed Stool Consistency Mucoid C. difficile PCR Final 05/09/17- 1303 ML Organism 1 027 Presumptive NEGATIVE Organism 2 Toxigenic C.diff POSITIVE * ML - Main Lab . END OF REPORT DEPARTMENT OF PATHOLOGY, [address] [place] [address] Kervin Shell M.D. Director [facility] # [id number] 3 SEE RESULT BELOW Name: JAMIA BATES : [address]: Joana Murillo MD Acct: [id number] Unit: [id number] AGE: 71 Location: ED Re05/09/17 SEX: F Status: DEP ER SPEC: [id number] TRITSAN: 05/09/[address] [facility] [address]: Joana Murillo MD REQ: [id number] RECD: 05/09/17 STATUS: MAURO LAM DR: Jasmyne Nguyen MD _ SOURCE: STOOL SPDESC: ORDERED: Stool Culture Procedure Result Reported Site Stool Culture Final 05/11/17- 1108 ML Result No enteric pathogens isolated Testing for Salmonella, Shigella, Aeromonas, Plesiomonas, Yersinia and Campylobacter are included in a Stool Culture. Vibrio spp not routinely tested for in a stool culture. If testing is desired, please request specifically when placing test order. Sensitivities not routinely performed on stool isolates, as antibiotics may prolong the carriage rate of bacteria. Please contact the microbiology lab if sensitivities are required. Stool Specimen Description Final 05/09/17- 1221 ML Stool Color Green Stool Form Nonformed Stool Consistency Mucoid Shiga Toxin 1 2 Final 05/12/17- 1135 ML Organism 1 Negative Shiga Toxin 1 2 Immunochromatographic Assay CONTINUED ON NEXT PAGE DEPARTMENT OF PATHOLOGY, [address] [place] [address] Kervin Sehll M.D. Director [facility] # [id number] Patient: JAMIA BATES [id number] (Continued) Specimen: [id number] Collected: 05/09/17 Received: 05/09/17 (Continued) Procedure Result Reported Site Shiga Toxin 1 2 Final (continued) 05/12/172 * ML - Main Lab . END OF REPORT DEPARTMENT OF PATHOLOGY, [address] [place] [address] Kervin Shell M.D. Director [facility] # [id number] 4 Because ethnic data is not always readily [...] 15-29 5 Kidney failure <15 (or dialysis) 5 Acute inflammation: >10.00 6 [facility] Severe Sepsis and Septic Shock Management Bundle Measure requires all lactic acids initially measuring >2.0 mmol/L be repeated. 7 Because ethnic data is not always readily [...] 15-29 5 Kidney failure <15 (or dialysis) 8 Acute inflammation: >10.00 9 SEE RESULT BELOW Name: JAMIA BATES : [address]: Jojo Gaston NP Acct: [id number] Unit: [id number] AGE: 71 Location: [facility] Re03/19/17 SEX: F Status: REG REF SPEC: [id number] TRISTAN: 03/19/17-[address] [facility] [address]: Jojo Gaston TACTICAL DEBRIEFER OFFICER REQ: [id number] RECD: 03/19/17 STATUS: COMP _ SOURCE: URINE SPDESC: ORDERED: Urine Culture COMMENTS: [id number] mcgovern urine c s tube Urine Source: Random Procedure Result Reported Site Urine Culture Final 03/20/17- 1650 ML No growth of clinically significant organisms * ML - MAIN LAB (PSC1) . END OF REPORT * ML=Testing performed at Main Lab DEPARTMENT OF PATHOLOGY, [address] [place] [address] Kervin Shell M.D. Director [facility] # [id number] 10 consistent w/ previous results 11 RESULTS VERIFIED BY REPEAT ANALYSIS 12 RESULTS VERIFIED BY REPEAT ANALYSIS 13 RESULTS VERIFIED BY REPEAT ANALYSIS 14 RESULTS VERIFIED BY REPEAT ANALYSIS 15 Reference Range and Interpretation: TnI (ng/mL) Interpretation Less Than 0.06 ng/mL Not supportive of diagnosis of MA 0.06 - 0.50 ng/mL Indeterminate: suggest serial studies if clinically indicated. Greater than 0.5 ng/mL Consistent with diagnosis of MA 16 CKMB interpretation should be made in conjunction with clinical symptoms, patient history and EKG changes. 17 Because ethnic data is not always readily [...] 15-29 5 Kidney failure <15 (or dialysis) 18 RUN DATE: 08/01/12 [facility] LAB LIVE PAGE 1 RUN TIME: [address] [place] [address] Specimen Inquiry Name: JAMIA BATES : [address]: Gerry Angela DO Acct: [id number] Unit: [id number] AGE: 67 Location: ED Re07/30/12 SEX: F Status: DEP ER SPEC: [id number] TRISTAN: 07/30/[address] [facility] [address]: Gerry Angela DO REQ: [id number] RECD: 07/30/12 STATUS: MAURO LAM DR: Jhonny Hanna MD _ SOURCE: URINE SPDESC: ORDERED: Urine Culture Procedure Result Verified Site Urine Culture Final 08/01/12931 ML Organism 1 NORMAL LISA [place] Count 50-75,000 (Many) CFU/ML END OF REPORT * ML=Testing performed at Main Lab DEPARTMENT OF PATHOLOGY, [address] [place] [address] Kervin Shell M.D. Director [place] [employer] Permit #[id number] 19 2+ (>10-30 /hpf) 20 Reference Range and Interpretation: TnI (ng/mL) Interpretation Less Than 0.06 ng/mL Not supportive of diagnosis of MA 0.06 - 0.50 ng/mL Indeterminate: suggest serial studies if clinically indicated. Greater than 0.5 ng/mL Consistent with diagnosis of MA Procedures Date CPT Code Description Status Comment 03/06/2017 Mammogram Completed 02/05/2016 63497 Dxa Bone Density Study One Or More Sites Completed Axial Skeleton 02/05/2016 Bone Mineral Density Test Completed osteopenia 07/11/2015 84141 Destruction Of Flat Warts Or Molluscum Completed Contagiosum, Milia To 15 01/05/2015 Mammogram Completed 10/09/2012 78487 Dxa Bone Density Vertebarl FX Assessment Completed 10/09/2012 49780 Dxa Bone Density Study One Or More Sites Completed Axial Skeleton 10/09/2012 Mammogram Completed 03/10/2009 Colonoscopy Completed due 2020 Encounters Type Date Location Provider CPT E/M Dx Office Visit 04/30/2017 2:40p [facility] Jasmyne Nguyen M.D. 55123 K12.2 R25.2 Office Visit 03/19/2017 11:30a [place] [address] R42 R31.9 Office Visit 02/20/2017 10:00a [facility] Office Jasmyne Nguyen M.D. 73942 Z00.00 E78.2 F33.0 M15.0 Office Visit 12/13/2016 2:45p [facility] ALY Cordova 80252 L23.7 L29.9 Office Visit 10/01/2016 10:00a Main Office Hussein aLres M.D. 68614 H69.91 Office Visit 09/26/2016 5:20p Main Office Jasmyne Nguyen M.D. 32139 Z01.818 H25.813 Office Visit 01/05/2016 1:50p [facility] Jasmyne Nguyen M.D. 40043 Z00.00 E78.2 L84 K21.9 M15.0 F33.0 Office Visit 09/25/2015 3:00p [facility] Leonid Ulrich 77216 L84 Office Visit 09/18/2015 3:10p Main Office Jose C Hernandez M.D. 88497 L84 Office Visit 07/11/2015 11:00a Main Office Jasmyne Nguyen M.D. 25699 B07.0 M79.674 Office Visit 06/22/2015 9:30a Main Office Catalina Sheridan, ALY 12346 J02.9 Office Visit 12/14/2014 2:00p [facility] Jasmyne Nguyen M.D. 49783 Z00.00 K21.9 E78.2 Z12.31 Z12.11 Office Visit 06/24/2014 10:00a [facility] Addie ConnerLEA 63986 462 Office Visit 12/20/2013 4:20p [facility] Jasmyne Nguyen M.D. 28317 272.4 053.13 530.81 715.09 Office Visit 05/21/2013 9:30a [facility] Leonid Boyd 09081 386.11 079.99 Office Visit 09/23/2012 1:10p [facility] Donell Heller M.D. 59339 V70.0 V77.91 V76.10 V76.51 272.4 053.13 V49.81 V76.41 Office Visit 02/25/2012 12:15p Main Office Leonid Boyd 60989 715.09 272.4 530.81 Plan of Care 05/15/2017 - Jasmyne Nguyen M.D.A04.72 Enterocolitis d/t Clostridium difficile, not spcf as recurComments:BRAT diet, zofran as needed, symptoms should be improved in 1 week, if not better/worsening call CLEMENCIA important to finish antibioticsAllComments:~B_~U_Medication Management~b_~u_ Patient Understands medications she's taking? Yes No Are there Barriers to Adherence? Yes No Has the patient been asked about herbal supplements and therapies, and OTC meds? Yes No
[2017-06-01] MEDS ORDERED: NS 0.9% 1000 ML* 1,000 ML IV ONE (21:18)
[2017-06-01] MEDS ORDERED: NS 0.9% 1000 ML* 1,000 ML IV SCH (21:30)
--- NOTE | 2017-06-01 21:42 | RAD ---
Indication: Weakness. Possible C. difficile. Comparison: July 30, 2012 CT. Technique: Upright AP 2128 hours Report: Clear lungs and pleural spaces. Negative for pneumothorax. The heart, pulmonary vasculature, and mediastinal contours are unremarkable. Negative for free air beneath the diaphragm. Unremarkable osseous structures and soft tissue contours. IMPRESSION: No evidence for acute intrathoracic disease.
[2017-06-01] MEDS ORDERED: Vancomycin CAP* 125 MG CAP PO ONE (22:18)
[2017-06-01 22:58] LABS: Hematocrit 38 % (35-47); Hemoglobin 12.6 g/dl (12.0-16.0); Mean Corpuscular HGB Conc 33 g/dl (31-36); Mean Corpuscular Hemoglobin 30 pg (27-31); Mean Corpuscular Volume 91 fL (80-97); Mean Platelet Volume 7.5 um3 (7.4-10.4); Platelet Count 252 10^3/ul (150-450); Red Blood Count 4.17 10^6/ul (4.0-5.4); Red Cell Distribution Width 14 % (10.5-15); White Blood Count 6.7 10^3/ul (3.5-10.8)
[2017-06-01 23:09] LABS: INR 1.14 (0.77-1.02)
[2017-06-01 23:17] LABS: EGFR Non-African American 91.5 (>60)
[2017-06-01 23:23] LABS: ABS Basophils 0.1 10^3/ul (0-0.2); ABS Eosinophils 0 10^3/ul (0-0.6); ABS Lymphocytes 1.3 10^3/ul (1.0-4.8); ABS Neutrophils 4.3 10^3/ul (1.5-7.7)
[2017-06-01 23:24] LABS: Monocytes % 20 % (0-7)
[2017-06-02 00:43] LABS: Urine Appearance Clear; Urine Blood Negative (Negative); Urine Color Yellow; Urine Ketones Negative (Negative); Urine Protein Negative (Negative); Urine Specific Gravity 1.012 (1.010-1.030); Urine Urobilinogen Negative (Negative)
[2017-06-02] MEDS ORDERED: Ondansetron INJ* 2 MG/ML VIAL IV ONE (02:44)
[2017-06-02] MEDS ORDERED: Ondansetron INJ* 2 MG/ML VIAL ONE (02:45)
[2017-06-02 04:26] VITALS: BP 134/83
--- NOTE | 2017-06-02 04:57 | ED ---
Blade Parsons Nikita, scribed for Wilbert Pozo MD on 06/02/17 at 0021 . Progress - Progress Note Progress Note: This patient was signed out from Dr. Lynn to Dr. Pozo, pending disposition. Re -eval at 0018: Pt remains fatigued here in the ED. Vital signs stable. Currently getting fluids. Re-eval at 0225: The patient's condition is unchanged. Consulted Dr. Gorman about the patient's case at 0235. Re-eval at 0347: Discussed with the pt about the discharge plan. Pt understands and agrees. Patient tolerating PO abx with anti-emetic medications. Vital signs and labs within normal limits. Pt able to ambulate independently without difficulty here in the ED. I instructed the pt to finish all her medications even if she improves and to return immediately to the ED if she is not able to tolerate medications. Pt agrees to and understands discharge instructions. Course/Dx - Diagnoses Provider Diagnoses: Dizziness Discharge - Sign-Out/Discharge Documenting (check all that apply): Discharge - Discharge Plan Condition: Stable Disposition: HOME Prescriptions: Ondansetron ODT TAB* [Zofran 4 MG Odt TAB*] 4 mg PO QID PRN #56 tab.odt PRN Reason: Nausea Vancomycin CAP* 125 mg PO QID #56 cap Patient Education Materials: Clostridium Difficile Infection (ED), Colitis (ED) Referrals: Jasmyne Nguyen MD [Primary Care Provider] - Additional Instructions: PLEASE TAKE MEDICATIONS DIRECTED. PLEASE FINISH ALL VANCOMYCIN EVEN IF YOU FEEL BETTER. PLEASE RETURN IMMEDIATELY TO THE ER IF YOU HAVE ANY WORSENING OR CONCERNING SYMPTOMS OR IF YOU CANNOT TOLERATE ORAL MEDICATIONS PLEASE MAKE AN APPOINTMENT TO BE SEEN BY YOUR PRIMARY CARE DOCTOR WITHIN 1-3 DAYS - Billing Disposition and Condition Condition: STABLE Disposition: HOME The documentation as recorded by the Blade barker Nikita accurately reflects the service I personally performed and the decisions made by Sánchez linton Dong, MD.
--- NOTE | 2017-06-02 10:32 | ED ---
Sarahi Parsons Edward, scribed for Javier Lynn on 06/01/17 at 2112 . Complex/Multi-Sys Presentation - HPI Summary HPI Summary: 72 y/o female presents to ED c/o constant, worsening weakness for around 1 week. Pt dx C. diff, and recently finished Flagyl. After a couple of days the pt 's sx returned. Pt tested positive for C. diff again aroudn 1 week ago. Pt is on Flagyl again, 14 days. Pt c/o decreased PO intake. Associated sx: nausea. - History Of Current Complaint Chief Complaint: EDNauseaVomitDiarrh Time Seen by Provider: 06/01/17 21:09 Hx Obtained From: Patient Onset/Duration: Lasting Weeks, Still Present Timing: Constant Associated Signs And Symptoms: Positive: Weakness, Nausea, Decreased Oral Intake - Allergies/Home Medications Allergies/Adverse Reactions: Allergies Allergy/AdvReac Type Severity Reaction Status Date / Time prednisone Allergy See Comment Verified 05/09/17 10:12 PMH/Surg Hx/FS Hx/Imm Hx Previously Healthy: No Endocrine/Hematology History: Denies: Hx Diabetes Cardiovascular History: Reports: Hx Hypercholesterolemia Denies: Hx Hypertension GI History: Reports: Hx Gastroesophageal Reflux Disease History: Denies: Hx Renal Disease Musculoskeletal History: Reports: Hx Arthritis - neck Sensory History: Reports: Hx Cataracts - both eyes, Hx Contacts or Glasses - glasses Denies: Hx Hearing Aid Comment Only: Hx Glaucoma - possible slight beginning Opthamlomology History: Reports: Hx Cataracts - both eyes, Hx Contacts or Glasses - glasses Comment Only: Hx Glaucoma - possible slight beginning Psychiatric History: Reports: Hx Anxiety - Cancer History Hx Chemotherapy: No Hx Radiation Therapy: No - Surgical History Surgery Procedure, Year, and Place: cararat surgery bilat eyes. 04/2017 incision for possible oral abscess (Dr. Keenan) Infectious Disease History: Yes Infectious Disease History: Denies: Hx Clostridium Difficile, Hx Hepatitis, Hx Human Immunodeficiency Virus (HIV), Hx of Known/Suspected MRSA, Hx Shingles, Hx Tuberculosis, Hx Known/ Suspected VRE, Hx Known/Suspected VRSA, History Other Infectious Disease, Traveled Outside the [place] in Last 30 Days - Family History Known Family History: Positive: Cardiac Disease - [place] (mother 62 y.o), Other - AAA (father) - Social History Alcohol Use: Occasionally Hx Substance Use: No Substance Use Type: Reports: None Hx Tobacco Use: No Smoking Status (MU): Never Smoked Tobacco Review of Systems Constitutional: Negative Eyes: Negative ENT: Negative Cardiovascular: Negative Respiratory: Negative Positive: Nausea, Other - decreased oral intake Genitourinary: Negative Musculoskeletal: Negative Skin: Negative Positive: Weakness Psychological: Normal All Other Systems Reviewed And Are Negative: Yes Physical Exam - Summary Physical Exam Summary: Appearance: Well appearing, no pain distress Skin: warm, dry, reflects adequate perfusion Head/face: normal Eyes: EOMI, LEONIDAS ENT: Dry mucous membranes Neck: supple, non-tender Respiratory: CTA, breath sounds present Cardiovascular: RRR, pulses symmetrical Abdomen: non-tender, soft Bowel: present Musculoskeletal: normal, strength/ROM intact Neuro: normal, sensory motor intact, A&Ox3 Triage Information Reviewed: Yes Vital Signs On Initial Exam: Initial Vitals Temp Pulse Resp BP Pulse Ox 97.7 F 103 20 128/85 97 06/01/17 19:25 06/01/17 19:25 06/01/17 19:25 06/01/17 19:25 06/01/17 19:25 Vital Signs Reviewed: Yes Diagnostics - Vital Signs Vital Signs Temp Pulse Resp BP Pulse Ox 06/01/17 19:25 97.7 F 103 20 128/85 97 - Laboratory Result Diagrams: 06/01/17 22:45 06/01/17 23:55 Lab Statement: Any lab studies that have been ordered have been reviewed, and results considered in the medical decision making process. - Radiology CXR Xray Interpretation: No Acute Changes - NO EVIDENCE FOR ACUTE INTRATHORACIC DISEASE Radiology Interpretation Completed By: Radiologist - EKG 1 EKG Interpretation: 21:52 - SR @ 98 BPM. No acute changes. Complex Multi-Symp Course/Dx Assessment/Plan: 72 y/o female presents to ED c/o constant, worsening weakness for around 1 week. Pt dx C. diff, and recently finished Flagyl. After a couple of days the pt's sx returned. Pt tested positive for C. diff again aroudn 1 week ago. Pt is on Flagyl again, 14 days. Pt c/o decreased PO intake. Associated sx: nausea. CXR SHOWS NO EVIDENCE FOR ACUTE INTRATHORACIC DISEASE. EKG - 21:52 - SR @ 98 BPM. No acute changes. Pt will be signed out to Dr. Pozo pending labs, dispo. - Diagnoses Differential Diagnoses/HQI/PQRI: Sepsis, Urinary Tract Infection Provider Diagnoses: Dizziness, C. difficile colitis, Dehydration Discharge - Sign-Out/Discharge Documenting (check all that apply): Sign-Out Patient Signing out patient TO: Wilbert Pozo Receiving patient FROM: Javier Lynn - Discharge Plan Condition: Stable Disposition: HOME Prescriptions: Ondansetron ODT TAB* [Zofran 4 MG Odt TAB*] 4 mg PO QID PRN #56 tab.odt PRN Reason: Nausea Vancomycin CAP* 125 mg PO QID #56 cap Patient Education Materials: Clostridium Difficile Infection (ED), Colitis (ED) Referrals: Jasmyne Nguyen MD [Primary Care Provider] - Additional Instructions: PLEASE TAKE MEDICATIONS DIRECTED. PLEASE FINISH ALL VANCOMYCIN EVEN IF YOU FEEL BETTER. PLEASE RETURN IMMEDIATELY TO THE ER IF YOU HAVE ANY WORSENING OR CONCERNING SYMPTOMS OR IF YOU CANNOT TOLERATE ORAL MEDICATIONS PLEASE MAKE AN APPOINTMENT TO BE SEEN BY YOUR PRIMARY CARE DOCTOR WITHIN 1-3 DAYS - Billing Disposition and Condition Condition: STABLE Disposition: HOME The documentation as recorded by the Sarahi barker Edward accurately reflects the service I personally performed and the decisions made by Shane linton Emmanuel.
== END 2017-06-02 04:15 | disposition home or self-care (01) ==
LOC: ED 19:23
DX: R42 Dizziness and giddiness (principal); A04.72 Enterocolitis due to Clostridium difficile, not specified as recurrent; E86.0 Dehydration; R11.0 Nausea; E78.00 Pure hypercholesterolemia, unspecified; K21.9 Gastro-esophageal reflux disease without esophagitis; M47.812 Spondylosis without myelopathy or radiculopathy, cervical region; F41.9 Anxiety disorder, unspecified; Z88.8 Allergy status to other drugs, medicaments and biological substances
CPT/HCPCS: 36415; 71045; 80053; 81003; 81015; 83605; 83690; 84484; 85025; 85610; 85730; 87086; 93005; 96361; 96374; 99283; A9270-GY; J2405

== ENCOUNTER 2017-06-25 09:04 | Emergency (ER) | payer OTHER ==
[2017-06-25] MEDS ORDERED: NS 0.9% 1000 ML* 1,000 ML IV ONE (09:22)
[2017-06-25 09:55] LABS: ABS Basophils 0 10^3/ul (0-0.2); ABS Eosinophils 0.1 10^3/ul (0-0.6); ABS Lymphocytes 1.2 10^3/ul (1.0-4.8); ABS Monocytes 0.7 10^3/ul (0-0.8); ABS Neutrophils 1.9 10^3/ul (1.5-7.7); ABS Nucleated RBC 0 10^3/ul; Eosinophil % 2.7 % (0-6); Hematocrit 37 % (35-47); Hemoglobin 12.5 g/dl (12.0-16.0); Mean Corpuscular HGB Conc 34 g/dl (31-36); Mean Corpuscular Hemoglobin 31 pg (27-31); Mean Corpuscular Volume 90 fL (80-97); Mean Platelet Volume 7.7 um3 (7.4-10.4); Nucleated Red Blood Cells % 0; Platelet Count 175 10^3/ul (150-450); Red Blood Count 4.08 10^6/ul (4.0-5.4); Red Cell Distribution Width 14 % (10.5-15); White Blood Count 3.9 10^3/ul (3.5-10.8)
[2017-06-25 10:13] LABS: EGFR Non-African American 85.3 (>60)
[2017-06-25 11:10] LABS: Urine Appearance Clear; Urine Blood 1+ (Negative); Urine Color Yellow; Urine Ketones Negative (Negative); Urine Protein Negative (Negative); Urine Specific Gravity 1.008 (1.010-1.030); Urine Urobilinogen Negative (Negative)
[2017-06-25 12:25] VITALS: BP 126/77
--- NOTE | 2017-06-25 13:02 | ED ---
Complex/Multi-Sys Presentation - HPI Summary HPI Summary: Patient is a 72-year-old female who presents emergency department for generalized weakness times several days. Patient states she was diagnosed with C. difficile last month and just finished a course of vancomycin a few days ago. Patient states diarrhea has resolved. She states over the last few days she has been feeling very weak and tired and her family doctor was concerned about dehydration. She otherwise denies fever, chills, lightheadedness, dizziness, chest pain, shortness of breath, abdominal pain, urinary symptoms. Admits to nausea. Patient's son who is present states that patient was doing better and was going to return to part-time work 2 days ago, Friday. He states that he did not speak to patient on Friday and when he spoke to her on Friday she did not know what day of the week it was and does not remember Friday happening. Patient states she did not go to work on Friday like she had planned and she is not sure why. She thinks that she fell asleep and did not wake up until Friday. Son also notes that she has been off balance with walking. Symptoms are moderate in severity. Patient has no significant past medical history. No current modifying factors. 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/Engineering Group Manager - Allergies/Home Medications Allergies/Adverse Reactions: Allergies Allergy/AdvReac Type Severity Reaction Status Date / Time metronidazole [From Flagyl] Allergy Dizziness Verified 06/25/17 09:10 prednisone Allergy See Comment Verified 05/09/17 10:12 Home Medications: Home Medications Ondansetron ODT TAB* [Zofran 4 MG Odt TAB*] 4 mg PO Q6H PRN 06/25/17 [History Confirmed 06/25/17] PMH/Surg Hx/FS Hx/Imm Hx Previously Healthy: Yes Endocrine/Hematology History: Denies: Hx Diabetes Cardiovascular History: Reports: Hx Hypercholesterolemia Denies: Hx Hypertension GI History: Reports: Hx Gastroesophageal Reflux Disease History: Denies: Hx Renal Disease Musculoskeletal History: Reports: Hx Arthritis - neck Sensory History: Reports: Hx Cataracts - both eyes, Hx Contacts or Glasses - glasses Denies: Hx Hearing Aid Comment Only: Hx Glaucoma - possible slight beginning Opthamlomology History: Reports: Hx Cataracts - both eyes, Hx Contacts or Glasses - glasses Comment Only: Hx Glaucoma - possible slight beginning Psychiatric History: Reports: Hx Anxiety - Cancer History Hx Chemotherapy: No Hx Radiation Therapy: No - Surgical History Surgery Procedure, Year, and Place: cataract surgery bilat eyes. 04/2017 incision for possible oral abscess (Dr. Keenan) Infectious Disease History: No Infectious Disease History: Denies: Hx Clostridium Difficile, Hx Hepatitis, Hx Human Immunodeficiency Virus (HIV), Hx of Known/Suspected MRSA, Hx Shingles, Hx Tuberculosis, Hx Known/ Suspected VRE, Hx Known/Suspected VRSA, History Other Infectious Disease, Traveled Outside the [place] in Last 30 Days - Family History Known Family History: Positive: Cardiac Disease - [place] (mother 62 y.o), Other - AAA (father) - Social History Occupation: Employed Part-time Lives: Alone Alcohol Use: None Hx Substance Use: No Substance Use Type: Reports: None Hx Tobacco Use: No Smoking Status (MU): Never Smoked Tobacco Review of Systems Constitutional: Negative Positive: Fever, Chills Eyes: Negative ENT: Negative Cardiovascular: Negative Negative: Palpitations, Chest Pain Negative: Shortness Of Breath, Cough Positive: Nausea. Negative: Abdominal Pain, Vomiting, Diarrhea Genitourinary: Negative Musculoskeletal: Negative Skin: Negative Positive: Weakness. Negative: Headache, Paresthesia, Numbness, Syncope, Slurred Speech All Other Systems Reviewed And Are Negative: Yes Physical Exam Triage Information Reviewed: Yes Vital Signs On Initial Exam: Initial Vitals Temp Pulse Resp BP Pulse Ox 97.3 F 88 20 117/78 98 06/25/17 09:05 06/25/17 09:05 06/25/17 09:05 06/25/17 09:05 06/25/17 09:05 Vital Signs Reviewed: Yes Appearance: Positive: Well-Appearing - Patient sitting up in bed in no acute distress. Son present. Skin: Positive: Warm, Dry Head/Face: Positive: Normal Head/Face Inspection Eyes: Positive: Normal ENT: Positive: Normal ENT inspection Neck: Positive: Supple Respiratory/Lung Sounds: Positive: Clear to Auscultation, Breath Sounds Present Cardiovascular: Positive: Normal, RRR Abdomen Description: Positive: Nontender, Soft Musculoskeletal: Positive: Normal, Strength/ROM Intact Neurological: Positive: Normal, Alert, Oriented to Person Place, Time, CN Intact II-III, Abnormal Gait, Finger to Nose - Normal on left. Mildly off on right., Ataxic Gait, Facial Symmetry, Speech Normal. Negative: Receptive Aphasia, Expressive Aphasia, Disoriented, Facial Droop, Focal Deficit @, Slurred Speech, Pronator Drift Present Psychiatric: Positive: Normal AVPU Assessment: Alert - Leopoldo Coma Scale Best Eye Response: 4 - Spontaneous Best Motor Response: 6 - Obeys Commands Best Verbal Response: 5 - Oriented Coma Scale Total: 15 Diagnostics - Vital Signs Vital Signs Temp Pulse Resp BP Pulse Ox 06/25/17 12:30 98.3 F 88 15 126/77 100 06/25/17 12:11 91 19 126/77 99 06/25/17 12:10 91 18 98 06/25/17 11:34 89 22 124/75 100 06/25/17 11:04 87 18 131/81 99 06/25/17 11:00 85 16 98 06/25/17 10:34 83 17 122/77 98 06/25/17 10:00 19 06/25/17 09:32 88 19 121/86 97 06/25/17 09:30 84 17 121/90 97 06/25/17 09:18 86 26 123/74 99 06/25/17 09:16 84 97 06/25/17 09:05 97.3 F 88 20 117/78 98 - Laboratory Lab Results: Lab Results 06/25/17 06/25/17 06/25/17 Range/Units 09:35 09:35 10:21 WBC 3.9 (3.5-10.8) 10^3/ul RBC 4.08 (4.0-5.4) 10^6/ul Hgb 12.5 (12.0-16.0) g/dl Hct 37 (35-47) % MCV 90 (80-97) fL MCH 31 (27-31) pg MCHC 34 (31-36) g/dl RDW 14 (10.5-15) % Plt Count 175 (150-450) 10^3/ul MPV 7.7 (7.4-10.4) um3 Neut % (Auto) 48.7 (38-83) % Lymph % (Auto) 30.0 (25-47) % Piatt % (Auto) 17.4 H (0-7) % Eos % (Auto) 2.7 (0-6) % Baso % (Auto) 1.2 (0-2) % Absolute Neuts (auto) 1.9 (1.5-7.7) 10^3/ul Absolute Lymphs (auto) 1.2 (1.0-4.8) 10^3/ul Absolute Monos (auto) 0.7 (0-0.8) 10^3/ul Absolute Eos (auto) 0.1 (0-0.6) 10^3/ul Absolute Basos (auto) 0 (0-0.2) 10^3/ul Absolute Nucleated RBC 0 10^3/ul Nucleated RBC % 0 Sodium 138 L (139-145) mmol/L Potassium 3.3 L (3.5-5.0) mmol/L Chloride 104 (101-111) mmol/L Carbon Dioxide 27 (22-32) mmol/L Anion Gap 7 (2-11) mmol/L BUN 14 (6-24) mg/dL Creatinine 0.68 (0.51-0.95) mg/dL Est GFR ( Amer) 109.7 (>60) Est GFR (Non-Af Amer) 85.3 (>60) BUN/Creatinine Ratio 20.6 H (8-20) Glucose 115 H (70-100) mg/dL Calcium 9.3 (8.6-10.3) mg/dL Magnesium 2.0 (1.9-2.7) mg/dL Total Bilirubin 0.40 (0.2-1.0) mg/dL AST 23 (13-39) U/L ALT 17 (7-52) U/L Alkaline Phosphatase 71 (34-104) U/L Troponin I 0.00 (<0.04) ng/mL Total Protein 6.7 (6.4-8.9) g/dL Albumin 3.6 (3.2-5.2) g/dL Globulin 3.1 (2-4) g/dL Albumin/Globulin Ratio 1.2 (1-3) Urine Color Yellow Urine Appearance Clear Urine pH 6.0 (5-9) Ur Specific Preston 1.008 L (1.010-1.030) Urine Protein Negative (Negative) Urine Ketones Negative (Negative) Urine Blood 1+ A (Negative) Urine Nitrate Negative (Negative) Urine Bilirubin Negative (Negative) Urine Urobilinogen Negative (Negative) Ur Leukocyte Esterase 1+ A (Negative) Urine WBC (Auto) Trace(0-5/hpf) (Absent) Urine RBC (Auto) Trace(0-2/hpf) (Absent) Urine Bacteria Absent (Absent) Urine Glucose Negative (Negative) Result Diagrams: 06/25/17 09:35 06/25/17 09:35 Lab Statement: Any lab studies that have been ordered have been reviewed, and results considered in the medical decision making process. Complex Multi-Symp Course/Dx Course Of Treatment: Patient presenting to emergency Department for malaise weakness, memory loss and unsteady gait. She is afebrile with stable vital signs. Symptoms have been ongoing for possibly 3+ days. On exam right finger to nose was mildly off. Pt. was walked to the bathroom and had a mild unsteady gate. Otherwise she has not unilateral focal deficits on exam. Blood work, IV fluids, ecg, cxr and head ct ordered. Labs are unremarkable. U/A negative for infection. CXR is negative for actute findings, per radiology. ECG done at 1017 shows a sinus rhythm of 80 bpm, normal axis, appropriate intervals, no ST elevation or depression. Patient declined head CT when tech came to the room. Case discussed with Dr. Rondon as well. I explained to pt. reasoning for the head CT given her neuro sxs. Pt. and son state that after IV fluids pt. seems closer to baseline and they feel she was just dehyrated. Pt. states she does not feel her symptoms have anything to do with her brain. She was re-ambulated and walked more steady. Pt. wishes to go. Pt. is aware that I am concerned for potentially CVA and the need for further workup. Pt. has decision making capacity and she and son understands my concerns and wish to go home without further evaluation. Advised to call PCP today for an apt. To increase fluids. To return to ER if symptoms change or worsen. - Diagnoses Differential Diagnoses/HQI/PQRI: CVA, Sepsis, Urinary Tract Infection, Other - dehydration Provider Diagnoses: Dehydration, Weakness Discharge - Sign-Out/Discharge Documenting (check all that apply): Discharge - Discharge Plan Condition: Stable Disposition: HOME Patient Education Materials: Weakness (ED) Referrals: Jasmyne Nguyen MD [Primary Care Provider] - Additional Instructions: It was recommended a brain CT and further imaging be done today in the ER for weakness, off balance, and memory loss to evaluate for a stroke Call your PCP today for an appointment Increase fluids Return to ER if symptoms change or worsen - Billing Disposition and Condition Condition: STABLE Disposition: HOME
--- NOTE | 2017-06-25 14:53 | RAD ---
INDICATION: Cough. COMPARISON: Comparison is made with a prior study from June 01, 2017. TECHNIQUE: An upright portable film of the chest was obtained. FINDINGS: The heart is within normal limits in size. Mediastinal and hilar contours appear within normal limits. The lungs are clear. No pleural effusion is present. IMPRESSION: NO EVIDENCE FOR ACTIVE CARDIOPULMONARY DISEASE.
== END 2017-06-25 12:30 | disposition home or self-care (01) ==
LOC: ED 09:04
DX: E86.0 Dehydration (principal); R53.1 Weakness; Z87.19 Personal history of other diseases of the digestive system; R11.0 Nausea
CPT/HCPCS: 36415; 71045; 80053; 81003; 81015; 83735; 84484; 85025; 87086; 93005; 96360; 99283

== ENCOUNTER 2017-06-27 12:46 | Emergency (ER) | payer OTHER ==
[2017-06-27] MEDS ORDERED: NS 0.9% 1000 ML* 1,000 ML IV ONE (13:19)
[2017-06-27 14:03] LABS: ABS Basophils 0.1 10^3/ul (0-0.2); ABS Eosinophils 0.1 10^3/ul (0-0.6); ABS Lymphocytes 1.7 10^3/ul (1.0-4.8); ABS Monocytes 1.1 10^3/ul (0-0.8); ABS Neutrophils 3.2 10^3/ul (1.5-7.7); ABS Nucleated RBC 0 10^3/ul; Eosinophil % 2.4 % (0-6); Hematocrit 39 % (35-47); Hemoglobin 13.2 g/dl (12.0-16.0); Lymphocyte % 27.7 % (25-47); Mean Corpuscular HGB Conc 34 g/dl (31-36); Mean Corpuscular Hemoglobin 31 pg (27-31); Mean Corpuscular Volume 91 fL (80-97); Mean Platelet Volume 7.7 um3 (7.4-10.4); Nucleated Red Blood Cells % 0; Platelet Count 203 10^3/ul (150-450); Red Blood Count 4.31 10^6/ul (4.0-5.4); Red Cell Distribution Width 14 % (10.5-15); White Blood Count 6.1 10^3/ul (3.5-10.8)
[2017-06-27 14:23] LABS: EGFR Non-African American 93.2 (>60)
[2017-06-27 15:47] VITALS: BP 138/84
--- NOTE | 2017-06-27 19:21 | ED ---
Nausea/Vomiting/Diarrhea HPI - HPI Summary HPI Summary: Patient presents to the ED from [facility] with a concern for dehydration and fluid replenishment. 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 Soon thereafter, symptoms recurred again this week. She was seen here in the ER 2 days ago and given fluid. She felt improved after that, but arrived to her doctor's office today feeling dehydrated. She states her stool has never returned to normal even after her last course of vancomycin for 14 days. She endorses explosive stools today with malodorous and green and yellow in color. She continues to eat and drink okay, but endorses feeling dizzy and weak intermittently, this has been occurring since she was diagnosed with C. difficile 2 months ago. - History of Current Complaint Chief Complaint: EDGeneral Stated Complaint: DEHYDRATION-SENT BY DR Perez Seen by Provider: 06/27/17 13:04 Hx Obtained From: Patient, Family/Family Program Specialist ?: No Onset/Duration: Sudden Onset Timing: Constant Severity Initially: Mild Severity Currently: Mild Pain Intensity: 0 Pain Scale Used: 0-10 Numeric Aggravating Factor(s): Nothing Alleviating Factor(s): Nothing Diarrhea Frequency: Every 3-4 hours - Risk Factors Influenza Risk Factors: Negative Surgical Obstruction Risk Factor(s): Negative - Allergies/Home Medications Allergies/Adverse Reactions: Allergies Allergy/AdvReac Type Severity Reaction Status Date / Time metronidazole [From Flagyl] Allergy Dizziness Verified 06/25/17 09:10 prednisone Allergy See Comment Verified 05/09/17 10:12 PMH/Surg Hx/FS Hx/Imm Hx Previously Healthy: Yes Endocrine/Hematology History: Denies: Hx Diabetes Cardiovascular History: Reports: Hx Hypercholesterolemia Denies: Hx Hypertension GI History: Reports: Hx Gastroesophageal Reflux Disease History: Denies: Hx Renal Disease Musculoskeletal History: Reports: Hx Arthritis - neck Sensory History: Reports: Hx Cataracts - both eyes, Hx Contacts or Glasses - glasses Denies: Hx Hearing Aid Comment Only: Hx Glaucoma - possible slight beginning Opthamlomology History: Reports: Hx Cataracts - both eyes, Hx Contacts or Glasses - glasses Comment Only: Hx Glaucoma - possible slight beginning Psychiatric History: Reports: Hx Anxiety - Cancer History Hx Chemotherapy: No Hx Radiation Therapy: No - Surgical History Surgery Procedure, Year, and Place: cataract surgery bilat eyes. 04/2017 incision for possible oral abscess (Dr. Keenan) - Immunization History Hx Pertussis Vaccination: No Immunizations Up to Date: Unable to Obtain/Confirm Infectious Disease History: No Infectious Disease History: Denies: Hx Clostridium Difficile, Hx Hepatitis, Hx Human Immunodeficiency Virus (HIV), Hx of Known/Suspected MRSA, Hx Shingles, Hx Tuberculosis, Hx Known/ Suspected VRE, Hx Known/Suspected VRSA, History Other Infectious Disease, Traveled Outside the [place] in Last 30 Days - Family History Known Family History: Positive: Cardiac Disease - [place] (mother 62 y.o), Other - AAA (father) - Social History Occupation: Unemployed Lives: Alone Alcohol Use: None Hx Substance Use: No Substance Use Type: Reports: None Hx Tobacco Use: No Smoking Status (MU): Never Smoked Tobacco Review of Systems Constitutional: Negative Negative: Fever, Chills, Fatigue, Skin Diaphoresis Eyes: Negative Negative: Sore Throat, Ear Ache, Nasal Discharge Negative: Palpitations, Chest Pain Negative: Shortness Of Breath, Cough Positive: Diarrhea. Negative: Abdominal Pain, Vomiting, Nausea Genitourinary: Negative Positive: no symptoms reported, see HPI Musculoskeletal: Negative Neurological: Negative All Other Systems Reviewed And Are Negative: Yes Physical Exam Triage Information Reviewed: Yes Vital Signs On Initial Exam: Initial Vitals Temp Pulse Resp BP Pulse Ox 96.9 F 80 20 147/81 100 06/27/17 12:50 06/27/17 12:50 06/27/17 12:50 06/27/17 12:50 06/27/17 12:50 Vital Signs Reviewed: Yes Appearance: Positive: Ill-Appearing Skin: Positive: Dry, Cold Head/Face: Positive: Normal Head/Face Inspection Eyes: Positive: EOMI, LEONIDAS, Conjunctiva Clear Neck: Positive: Supple, No Lymphadenopathy Respiratory/Lung Sounds: Positive: Clear to Auscultation, Breath Sounds Present Cardiovascular: Positive: RRR, Pulses are Symmetrical in both Upper and Lower Extremities Musculoskeletal: Positive: Normal, Strength/ROM Intact Neurological: Positive: Speech Normal Psychiatric: Positive: Normal, Affect/Mood Appropriate AVPU Assessment: Alert Diagnostics - Vital Signs Vital Signs Temp Pulse Resp BP Pulse Ox 06/27/17 15:46 100.6 F 108 18 138/84 100 04/20/18 12:50 96.9 F 80 20 147/81 100 - Laboratory Lab Results: Lab Results 06/27/17 06/27/17 06/27/17 Range/Units 13:30 13:30 13:30 WBC 6.1 (3.5-10.8) 10^3/ul RBC 4.31 (4.0-5.4) 10^6/ul Hgb 13.2 (12.0-16.0) g/dl Hct 39 (35-47) % MCV 91 (80-97) fL MCH 31 (27-31) pg MCHC 34 (31-36) g/dl RDW 14 (10.5-15) % Plt Count 203 (150-450) 10^3/ul MPV 7.7 (7.4-10.4) um3 Neut % (Auto) 51.8 (38-83) % Lymph % (Auto) 27.7 (25-47) % Kimball % (Auto) 17.3 H (0-7) % Eos % (Auto) 2.4 (0-6) % Baso % (Auto) 0.8 (0-2) % Absolute Neuts (auto) 3.2 (1.5-7.7) 10^3/ul Absolute Lymphs (auto) 1.7 (1.0-4.8) 10^3/ul Absolute Monos (auto) 1.1 H (0-0.8) 10^3/ul Absolute Eos (auto) 0.1 (0-0.6) 10^3/ul Absolute Basos (auto) 0.1 (0-0.2) 10^3/ul Absolute Nucleated RBC 0 10^3/ul Nucleated RBC % 0 Sodium 135 L (139-145) mmol/L Potassium TNP Chloride 99 L (101-111) mmol/L Carbon Dioxide 29 (22-32) mmol/L Anion Gap 7 (2-11) mmol/L BUN 8 (6-24) mg/dL Creatinine 0.63 (0.51-0.95) mg/dL Est GFR ( Amer) 119.8 (>60) Est GFR (Non-Af Amer) 93.2 (>60) BUN/Creatinine Ratio 12.7 (8-20) Glucose 96 (70-100) mg/dL Lactic Acid 1.6 (0.5-2.0) mmol/L Calcium 9.1 (8.6-10.3) mg/dL Total Bilirubin 0.50 (0.2-1.0) mg/dL AST TNP ALT 20 (7-52) U/L Alkaline Phosphatase 89 (34-104) U/L Total Protein 6.9 (6.4-8.9) g/dL Albumin 3.7 (3.2-5.2) g/dL Globulin 3.2 (2-4) g/dL Albumin/Globulin Ratio 1.2 (1-3) Result Diagrams: 06/27/17 13:30 06/27/17 13:30 Lab Statement: Any lab studies that have been ordered have been reviewed, and results considered in the medical decision making process. Naus/Vom/Diarrhea Course/Dx - Course Course Of Treatment: During the course of treatment, the patient is evaluated for dehydration and C. difficile. She was unable to give a stool sample while in the ED. Her primary care provider already has sent in a prescription for vancomycin 3 times daily and will follow-up with this. PCP sent her here to the ED today to assess for dehydration and has requested fluid replenishment. Labs obtained which are unremarkable and does not show diagnostic dehydration. She is given 1 L fluids. She appears and feels much better after 1 L fluids. She feels OK to be discharged. Son is at bedside. She is encouraged Gatorade and probiotics. - Differential Dx/Diagnosis Provider Diagnoses: C. difficile Condition At Discharge: Stable Discharge - Sign-Out/Discharge Documenting (check all that apply): Discharge - Discharge Plan Condition: Stable Disposition: HOME Patient Education Materials: Clostridium Difficile Infection (ED) Referrals: Jasmyne Nguyen MD [Primary Care Provider] - Additional Instructions: Please follow-up with Dr. Nguyen Take all medications as prescribed Drink plenty of fluids including Gatorade - Billing Disposition and Condition Condition: STABLE Disposition: HOME
== END 2017-06-27 15:46 | disposition home or self-care (01) ==
LOC: ED 12:46
DX: A04.72 Enterocolitis due to Clostridium difficile, not specified as recurrent (principal); E78.00 Pure hypercholesterolemia, unspecified; K21.9 Gastro-esophageal reflux disease without esophagitis
CPT/HCPCS: 36415; 80053; 83605; 85025; 96360; 99282